=== PATIENT | female | born 2000 | race Caucasian/White ===

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

== ENCOUNTER 2018-10-24 12:55 | Emergency (ER) | payer SELFPAY ==
[2018-10-24 12:57] VITALS: BP 104/72; PULSE 111; RESP 16; TEMP 36.7; O2SAT 97; BMI 22.2
--- NOTE | 2018-10-24 13:12 | ED.DCSUM_ITS ---
- ER Visit Summary Date of Service: 10/24/18 Chief Complaint: Flank pain History of Present Illness: The patient is a 17 F presents to the emergency department flank pain. The patient states her symptoms began rather suddenly today. She describes a sharp, stabbing pain in her right flank. It does radiate to her abdomen. She states she is never really had pain like this before. She denies any fever or chills. She has had some increased urinary frequency. She denies any history of prior kidney stone. She is sexually active, but denies any vaginal bleeding or discharge. She did not take anything for her symptoms. Physical Examination: Vital signs reviewed General: Well-nourished, well-developed Head: Normocephalic, atraumatic Eyes: Pupils equal and reactive, extraocular muscles intact Neck, supple, no lymphadenopathy Heart: Regular rate and rhythm Respiratory: No distress, clear bilaterally Abdomen: Soft, nontender, nondistended, no peritoneal signs Back: Nontender Extremities: Nontender, no edema, no cords Skin: Normal color no rash Neuro: Alert and oriented, no focal or lateralizing deficits Test Results: [] Emergency Department Course and Treatment: IV was established. Patient was given fluids and anti-inflammatories. She did have improvement of her pain. Urine shows no evidence of blood. She is now . There is however infection. My suspicion is for mild pyelonephritis. Patient's pain is controlled. She is on no vomiting. She had no fever. I do feel that she is safe for outpatient therapy. She is comfortable this plan of care and will be discharged home. Treatment Plan: [] Disposition: [] Impression: Charge 1. Pyelonephritis This note was generated with [employer] dictation software. It may contain incorrect words, spelling, and punctuation that were not noted in review of the chart prior to signing ED Disposition - Plan for ED Patient: Instructions: ED Kidney Infec Female Prescriptions: Ondansetron [Zofran Odt] 4 mg PO Q8H PRN PRN #10 tab PRN Reason: Nausea Smz/Tmp Ds [Bactrim Ds] 1 tab PO BID #14 tab Referrals: Selvin Giraldo MD [Primary Care Provider] -
[2018-10-24 13:29] LABS: Bacteria 0 SEEN /hpf (None Seen); Mucous, Urine 0 SEEN /hpf (<or=2+); Red Blood Cells-Urine 0 SEEN /hpf (0-5)
[2018-10-24 13:32] LABS: Color, Urine Yellow (Yellow); Glucose, Dipstick Normal (Normal); Ketone-Dipstick Negative (Negative); Leukocyte Esterase-Dipstick 500 /ul (Negative); Nitrite-Dipstick Negative (Negative); Occult Blood-Urine 50 /ul (Negative); Protein-Dipstick 30 mg/dl (Negative); Specific Gravity, Urine 1.015 (1.002-1.030); Urine Bilirubin Dipstick Negative (Negative); Urine Clarity Cloudy (Clear); Urine Urobilinogen 4 mg/dl (Normal)
[2018-10-24] MEDS: 0.9% Normal Saline 1,000 ML 250 ML IV (13:37)
[2018-10-24] MEDS: Ketorolac 30 MG/ML Syringe IV (13:38)
[2018-10-24] MEDS: Ondansetron 4 MG/2 ML Vial IV (13:38)
[2018-10-24 13:39] LABS: Amorphous Sediment 2+; Squamous Epithelial Cells - UA 5-10 SEEN /hpf (5-10); White Blood Cells 25-50 SEEN /hpf (0-5)
[2018-10-24 13:40] LABS: Internal QC Validated? YES +Cl - CLEAR BKGD; Pregnancy, Urine Negative Negative
[2018-10-24] MEDS: Smz/Tmp Ds Tablet 1 TABLET PO (14:25)
--- NOTE | 2018-10-24 16:45 | ED.DEP ---
ED Disposition - Plan for ED Patient: Disposition: Home or Assisted Living Instructions: ED Kidney Infec Female Prescriptions: Ondansetron [Zofran Odt] 4 mg PO Q8H PRN PRN #10 tab PRN Reason: Nausea Smz/Tmp Ds [Bactrim Ds] 1 tab PO BID #14 tab Smz/Tmp Ds [Bactrim Ds] 1 tab PO BID #14 tab Referrals: Selvin Giraldo MD [Primary Care Provider] -
== END 2018-10-24 14:35 | disposition home or self-care (01) ==
PROVIDERS: Emergency Provider Emergency Medicine; Family Provider Pediatrics; PCP Pediatrics
DX: N12 Tubulo-interstitial nephritis, not specified as acute or chronic (principal)
CPT/HCPCS: 81001; 81025; 87077; 87086; 87088; 87186; 96361; 96374; 96375; 99284; J7030; J2405

== ENCOUNTER → 2020-07-01 14:21 | Outpatient (CLI) | payer BC, SELFPAY ==
[2020-07-01 13:58] VITALS: BMI 27.7
[2020-07-01 14:42] LABS: Absolute Lymphocyte Count 2.55 X10^3/uL (0.83-4.51); Absolute Neutrophil Count 5.4 X10^3/uL (2.0-7.7); Basophil# 0.03 X10^3/uL; Basophil% 0.4 % (0-1); Eosinophils% 1.2 % (0-5); Hematocrit 43.8 % (37-47); Lymphocyte # 2.55 X10^3/ul (4.0); Mean Corpuscular Hgb 28.9 pg (27.0-32.0); Mean Corpuscular Volume 90.5 fL (81-99); Mean Platelet Vol. 9.5 fl (6.2-12.0); Monocyte% 4.7 % (0-10); NRBC Flagged by Analyzer 0 % (0-5); Neutrophil % 63.5 % (47-70); Platelet Count 302 K/mm3 (150-450); RBC Distribution Width CV 11.8 % (11.6-14.6); RBC Distribution Width SD 39.1 fl (35.1-43.9); Red Blood Count 4.84 M/mm3 (4.2-5.4); White Blood Count 8.5 K/mm3 (4.4-11.0)
[2020-07-01 15:16] LABS: Thyroid Stim Hormone (TSH) 1.08 uIU/mL (0.358-3.74)
== END ==
PROVIDERS: PCP Pediatrics; Referring Provider Obstetrics & Gynecology; Visit Provider Obstetrics & Gynecology
DX: N92.0 Excessive and frequent menstruation with regular cycle (principal)
CPT/HCPCS: 36415; 84443; 85025

== ENCOUNTER → 2020-09-04 14:46 | Outpatient (CLI) | payer BC, SELFPAY ==
[2020-07-01 13:58] VITALS: BMI 27.7
[2020-09-04 16:02] LABS: hCG Titer Quant., Serum 358 mIU/mL (1-3)
== END ==
PROVIDERS: PCP Pediatrics; Referring Provider Obstetrics & Gynecology; Visit Provider Obstetrics & Gynecology
DX: N91.2 Amenorrhea, unspecified (principal)
CPT/HCPCS: 36415; 84702

== ENCOUNTER → 2020-09-06 12:24 | Outpatient (CLI) | payer BC, SELFPAY ==
[2020-07-01 13:58] VITALS: BMI 27.7
[2020-09-06 13:35] LABS: hCG Titer Quant., Serum 658 mIU/mL (1-3)
== END ==
LOC: LAB 12:26
PROVIDERS: PCP Pediatrics; Visit Provider Obstetrics & Gynecology
DX: N91.2 Amenorrhea, unspecified (principal)
CPT/HCPCS: 36415; 84702

== ENCOUNTER → 2020-09-11 12:26 | Outpatient (CLI) | payer SELFPAY ==
[2020-09-11 10:19] VITALS: BMI 27.4
== END ==
PROVIDERS: PCP Pediatrics; Referring Provider Obstetrics & Gynecology; Visit Provider Obstetrics & Gynecology
DX: R30.0 Dysuria (principal)

== ENCOUNTER → 2020-09-21 15:08 | Outpatient (CLI) | payer MEDICAID, SELFPAY ==
[2020-09-11 10:19] VITALS: BMI 27.4
--- NOTE | 2020-09-21 15:11 | US_ITS ---
STUDY: FIRST TRIMESTER OBSTETRICAL ULTRASOUND REASON FOR EXAM: Female, 19 years old well being LMP: 07/27/2020 TECHNIQUE: Transabdominal and Transvaginal TECHNICAL QUALITY: Adequate. PRIOR ULTRASOUND: None. FINDINGS: There is visualization of a single gestational sac in a normal intrauterine position. The mean sac diameter (MSD) measures 2 cm, indicating an estimated gestational age (EGA) of 6 weeks, 6 days. The gestational sac shape is within normal limits. There is a visualized yolk sac. The yolk sac measures 3.3 mm. The placenta is non-visualized. There is visualization of a live embryo. The crown-rump length (CRL) measures 5.4 mm, indicating an estimated gestational age (EGA) of 6 weeks, 3 days. There is demonstrated cardiac activity with a heart rate of 117 bpm. The estimated gestation age (EGA) by LMP is 8 weeks, 0 days. The estimated date of delivery (KVNG) by LMP is 05/03/2021. The estimated gestation age (EGA) by US is 6 weeks, 4 days. The estimated date of delivery (KVNG) by US is 05/13/2021. The uterus measures 7.8 x 5.8 x 4.1 cm. There is no demonstrated uterine fibroid. The cervix is closed. The right ovary measures 3.5 x 2.6 x 1.9 cm. There is no right ovarian cyst. There is no visualized right adnexal mass or complex lesion. The left ovary measures 2.8 x 2 x 3.2 cm. There is no left ovarian cyst. There is no visualized left adnexal mass or complex lesion. There is no fluid in the cul de sac. US/Init OB < 14Wks US IMPRESSION: Single live early intrauterine as above Electronically Signed: Moe Garcia DO at 0:33 EDT Tel , Service support ,
== END ==
PROVIDERS: PCP Pediatrics; Referring Provider Obstetrics & Gynecology; Visit Provider Obstetrics & Gynecology
DX: Z34.90 Encounter for supervision of normal pregnancy, unspecified, unspecified trimester (principal)
CPT/HCPCS: 76801

== ENCOUNTER → 2020-09-22 09:00 | Outpatient (CLI) | payer MEDICAID, SELFPAY ==
[2020-09-11 10:19] VITALS: BMI 27.4
== END ==
PROVIDERS: PCP Pediatrics; Referring Provider Nurse Practitioner Women's Health; Visit Provider Nurse Practitioner Women's Health
DX: N92.0 Excessive and frequent menstruation with regular cycle (principal)
CPT/HCPCS: 36415; 86850; 86900; 86901

== ENCOUNTER → 2020-10-05 16:45 | Outpatient (CLI) | payer MEDICAID, SELFPAY ==
[2020-10-05 14:30] VITALS: BMI 27.1
[2020-10-05 19:08] LABS: Amphetamine Urine VISTA NEGATIVE (<1000 ng/mL); Barbiturate Urine VISTA NEGATIVE (< 200 ng/mL); Benzodiazepine Urine VISTA NEGATIVE (< 200 ng/mL); Cocaine Urine VISTA NEGATIVE (< 300 ng/mL); Ecstacy Urine VISTA NEGATIVE (< 500 ng/mL); Methadone Urine VISTA NEGATIVE (< 300 ng/mL); PCP Urine VISTA NEGATIVE (< 25 ng/mL); THC Urine VISTA NEGATIVE (< 50 ng/mL); Vista UDS pH Range 6
[2020-10-08 03:07] LABS: Chlamydia By Nucleic Acid AMP Negative (Negative)
[2020-10-08 09:01] LABS: Gonococcus By Nucleic Acid AMP Negative (Negative)
[2020-10-08 18:45] LABS: HPV Reflexed? NOT INDICATED
== END ==
PROVIDERS: PCP Pediatrics; Visit Provider Obstetrics & Gynecology
DX: Z34.90 Encounter for supervision of normal pregnancy, unspecified, unspecified trimester (principal)
CPT/HCPCS: 80307; 87077; 87086; 87088; 87491; 87591; 88175; G0145

== ENCOUNTER → 2020-11-05 09:12 | Outpatient (CLI) | payer MEDICAID, SELFPAY ==
[2020-10-05 14:30] VITALS: BMI 27.1
[2020-11-05 09:41] LABS: Absolute Lymphocyte Count 2.11 X10^3/uL (0.83-4.51); Absolute Neutrophil Count 4.7 X10^3/uL (2.0-7.7); Basophil# 0.01 X10^3/uL; Basophil% 0.1 % (0-1); Eosinophil# 0.04 X10^3/uL; Eosinophils% 0.6 % (0-5); Hematocrit 39.5 % (37-47); Hemoglobin 12.8 g/dL (12.0-15.0); Lymphocyte # 2.11 X10^3/ul (0.83-4.51); Lymphocyte % 29.4 % (19-41); Mean Corp Hgb Conc 32.4 g/dL (32-36); Mean Corpuscular Hgb 29.2 pg (27.0-32.0); Mean Corpuscular Volume 90.2 fL (81-99); Mean Platelet Vol. 9.8 fl (6.2-12.0); Monocyte% 4.2 % (0-10); NRBC Flagged by Analyzer 0 % (0-5); Neutrophil % 65.4 % (47-70); Platelet Count 230 K/mm3 (150-450); RBC Distribution Width CV 12.2 % (11.6-14.6); RBC Distribution Width SD 40.3 fl (35.1-43.9); Red Blood Count 4.38 M/mm3 (4.2-5.4); White Blood Count 7.2 K/mm3 (4.4-11.0)
[2020-11-05 10:36] LABS: NATERA MAILED SPECIMEN
[2020-11-05 10:52] LABS: HIV - WCH Non-Reactive (Nonreactive); Hepatitis B Surface Antigen Non-Reactive (Nonreactive); Hepatitis C Antibody Non-Reactive (Nonreactive); Rubella IgG Reactive (Nonreactive)
== END ==
PROVIDERS: PCP Pediatrics; Referring Provider Obstetrics & Gynecology; Visit Provider Obstetrics & Gynecology
DX: O23.40 Unspecified infection of urinary tract in pregnancy, unspecified trimester (principal); Z3A.00 Weeks of gestation of pregnancy not specified
CPT/HCPCS: 36415; 85025; 86703; 86762; 86803; 86850; 86900; 86901; 87086; 87088; 87340

== ENCOUNTER → 2020-11-10 09:22 | Outpatient (CLI) | payer MEDICAID, SELFPAY ==
[2020-11-05 09:48] VITALS: BMI 27.1
--- NOTE | 2020-11-10 09:24 | US_ITS ---
STUDY: ABDOMINAL ULTRASOUND REASON FOR EXAM: Female, 20 years old. RUQ pain. TECHNIQUE: Transabdominal ultrasound was performed with real-time and static alexander scale imaging. TECHNICAL QUALITY: Adequate. COMPARISON: None. FINDINGS: Liver: The liver measures 13.6 cm. There is normal echogenicity of the liver. The bile ducts are within normal limits. There is hepatic color flow. The direction of portal flow is hepatopetal. There is no demonstrated mass lesion. Portal vein measurement: Gallbladder: Normal distended gallbladder. The gallbladder wall measures 2.2 mm. There is a negative sonographic Farr''s sign. There is no pericholecystic fluid. There are no gallstones. Common Bile Duct (C.B.D.): The common bile duct measures 2.5 mm. Pancreas: Normal size of the head, body and tail of the pancreas. There is normal echogenicity of the pancreas. There is no demonstrated pancreatic mass or cyst. Spleen: Normal size of the spleen. The spleen measures 9.5 cm x 3.5 cm x 4.6 cm. Right Kidney: Normal size of the right kidney. The right kidney measures 10.6 cm x 5.4 cm x 4.1 cm. Normal renal cortex. The right cortex measures 1.1 cm. There is no demonstrated renal mass or cyst. There is no right hydronephrosis. Left Kidney: Normal size of the left kidney. The left kidney measures 10.2 cm x 4.5 cm x 4.4 cm. Normal renal cortex. The left cortex measures 1.3 cm. There is no demonstrated renal mass or cyst. There is no left hydronephrosis. Aorta: Unremarkable I.V.C.: The IVC is patent. There is no ascites. US/Abdomen Complete IMPRESSION: Normal abdominal ultrasound examination. Electronically Signed: Aleksey Glover MD at 12:35 EDT , Service support ,
== END ==
PROVIDERS: PCP Pediatrics; Referring Provider Obstetrics & Gynecology; Visit Provider Obstetrics & Gynecology
DX: R10.11 Right upper quadrant pain (principal)
CPT/HCPCS: 76700

== ENCOUNTER → 2021-01-22 16:38 | Outpatient (CLI) | payer MEDICAID, SELFPAY ==
[2021-01-22 15:13] VITALS: BMI 27.1
== END ==
PROVIDERS: PCP Pediatrics; Visit Provider Obstetrics & Gynecology
DX: R10.2 Pelvic and perineal pain (principal)
CPT/HCPCS: 87086; 87088

== ENCOUNTER → 2021-01-25 16:38 | Outpatient (CLI) | payer MEDICAID, SELFPAY ==
[2021-01-25 15:05] VITALS: BMI 28.5
== END ==
PROVIDERS: PCP Pediatrics; Referring Provider Nurse Practitioner Women's Health; Visit Provider Nurse Practitioner Women's Health
DX: N76.0 Acute vaginitis (principal); R30.9 Painful micturition, unspecified
CPT/HCPCS: 87070; 87086; 87088; 87205

== ENCOUNTER 2021-01-28 09:15 | Outpatient (CLI) | payer MEDICAID, SELFPAY ==
[2021-01-25 15:05] VITALS: BMI 28.5
[2021-01-28 09:25] VITALS: BMI 28.4
[2021-01-28 09:39] VITALS: BP 124/76; PULSE 80
[2021-01-28 10:16] LABS: ROM Internal Control Test YES-OK TO RESULT pt. (Internal QC); ROM Patient Test Negative (Negative)
--- NOTE | 2021-01-29 10:56 | OB.TRI.PN ---
Progress Notes Date of Service: 01/28/21 Progress Note: Patient presents for triage evaluation secondary to leakage of fluid. ROM negative. FHT: Moderate variability reactive no decelerations category I tracing [place]: No Contractions Assessment and plan: Reactive NST, reassuring maternal and status patient discharged to home to follow-up at next scheduled visit. See problem list details for additional plan information. Laboratory Studies: Laboratory Tests 01/28/21 Range/Units 09:40 Vag Amniotic Fld Detect Negative (Negative) Charges/Coding Procedures Urinary/Genital 52xxx-59xxx: 86925-95 non-stress test Interp
== END 2021-01-28 10:52 | disposition home or self-care (01) ==
LOC: WPOUT 09:19 → WP 09:19
PROVIDERS: PCP Pediatrics; Referring Provider Obstetrics & Gynecology; Visit Provider Obstetrics & Gynecology
DX: O42.90 Premature rupture of membranes, unspecified as to length of time between rupture and onset of labor, unspecified weeks of gestation (principal); Z3A.00 Weeks of gestation of pregnancy not specified
CPT/HCPCS: 59025; 59050; 84112; 99218; G0378

== ENCOUNTER → 2021-02-16 08:33 | Outpatient (CLI) | payer MEDICAID, SELFPAY ==
[2021-01-28 09:25] VITALS: BMI 28.4
[2021-02-16 08:51] LABS: Absolute Lymphocyte Count 2.35 X10^3/uL (0.83-4.51); Absolute Neutrophil Count 7.7 X10^3/uL (2.0-7.7); Basophil# 0.04 X10^3/uL; Basophil% 0.4 % (0-1); Eosinophil# 0.11 X10^3/uL; Hematocrit 34.5 % (37-47); Hemoglobin 11.5 g/dL (12.0-15.0); Lymphocyte # 2.35 X10^3/ul (0.83-4.51); Lymphocyte % 21.7 % (19-41); Mean Corp Hgb Conc 33.3 g/dL (32-36); Mean Corpuscular Hgb 30.9 pg (27.0-32.0); Mean Corpuscular Volume 92.7 fL (81-99); Mean Platelet Vol. 9.8 fl (6.2-12.0); Monocyte# 0.53 X10^3/uL; Monocyte% 4.9 % (0-10); NRBC Flagged by Analyzer 0 % (0-5); Neutrophil # 7.71 X10^3/uL (2.7-7.7); Neutrophil % 71.4 % (47-70); Platelet Count 257 K/mm3 (150-450); RBC Distribution Width CV 12.9 % (11.6-14.6); RBC Distribution Width SD 43.6 fl (35.1-43.9); Red Blood Count 3.72 M/mm3 (4.2-5.4); White Blood Count 10.8 K/mm3 (4.4-11.0)
[2021-02-16 08:59] LABS: Glucose Challenge Gest 1H 50g 158 mg/dL (70-140)
== END ==
PROVIDERS: PCP Pediatrics; Referring Provider Nurse Practitioner Women's Health; Visit Provider Nurse Practitioner Women's Health
DX: Z13.1 Encounter for screening for diabetes mellitus (principal)
CPT/HCPCS: 36415; 82950; 85025

== ENCOUNTER → 2021-02-24 06:41 | Outpatient (CLI) | payer MEDICAID, SELFPAY ==
[2021-02-16 09:28] VITALS: BMI 28.4
[2021-02-24 08:25] LABS: Glucose GTT-Gestation. Fasting 80 mg/dL (<105)
[2021-02-24 08:43] LABS: Glucose GTT-Gestational 1 Hr 155 mg/dL (<190)
[2021-02-24 09:49] LABS: Glucose GTT-Gestational 2 Hr 131 mg/dL (<165)
[2021-02-24 11:08] LABS: Glucose GTT-Gestational 3 Hr 86 L (<145)
== END ==
PROVIDERS: PCP Pediatrics; Referring Provider Obstetrics & Gynecology; Visit Provider Obstetrics & Gynecology
DX: Z13.1 Encounter for screening for diabetes mellitus (principal)
CPT/HCPCS: 36415; 82951; 82952

== ENCOUNTER 2021-03-20 20:20 | Outpatient (CLI) | payer MEDICAID, SELFPAY ==
[2021-03-20 20:53] VITALS: PULSE 85; TEMP 36.6; O2SAT 98
[2021-03-20 20:54] VITALS: BP 122/60; PULSE 72
[2021-03-20 21:07] VITALS: BMI 28.9
[2021-03-20 21:24] VITALS: BP 123/68; PULSE 66
[2021-03-20] MEDS: Acetaminophen/Butalbital/Caffe 1 Tablet 2 TABLET PO (21:42)
[2021-03-20 21:49] LABS: Protein, Urine (Random) 15.6 mg/dL (<11.9); Protein:Creat Ratio 360 mg/g CRE (0-200)
[2021-03-20 21:53] VITALS: BP 113/75; PULSE 69
--- NOTE | 2021-03-21 06:50 | OB.TRI.PN ---
Progress Notes Date of Service: 03/20/21 Progress Note: Patient presents for triage evaluation secondary to headache and elevated bp FHT: 130 Moderate variability reactive no decelerations category I tracing [place]: irregular Contractions Assessment and plan: headache resolved, nl bps, elevated urine protein will get 24 hour urine Reactive NST, reassuring maternal and status patient discharged to home to follow-up this week in office. See problem list details for additional plan information. Laboratory Studies: Laboratory Tests 03/20/21 Range/Units 21:20 U Random Total Protein 15.6 H (<11.9) mg/dL Urine Creatinine 43.30 (NO RANGE EST.) mg/dL Protein/Creatinin Ratio 360 H (0-200) mg/g CRE Charges/Coding Procedures Urinary/Genital 52xxx-59xxx: 85389-56 non-stress test Interp Assessment & Plan (1) Proteinuria affecting : COMMENT: if 24 hour urine elvated- weekly nsts, get preeclampsia labs, growth us, home bp checks
[2021-03-21 23:19] LABS: 24 Hour Urine Protein 246.1 mg/24HR (<150 MG/24HR); 24HR. UA Prot. Total Volume 2300 mL; Urine Protein (24 Hour) 10.7 mg/dL (<11.9)
== END 2021-03-20 22:20 | disposition home or self-care (01) ==
LOC: WPOUT 20:36 → WP 20:42
PROVIDERS: PCP Pediatrics; Visit Provider Obstetrics & Gynecology
DX: O12.10 Gestational proteinuria, unspecified trimester (principal); Z3A.00 Weeks of gestation of pregnancy not specified; Z79.899 Other long term (current) drug therapy
CPT/HCPCS: 59025; 59050; 82570; 84156; 99218; G0378

== ENCOUNTER → 2021-04-02 18:25 | Outpatient (CLI) | payer MEDICAID, SELFPAY ==
--- NOTE | 2021-04-02 18:28 | US_ITS ---
STUDY: SECOND AND THIRD TRIMESTER OBSTETRICAL ULTRASOUND - LIMITED REASON FOR EXAM: Female, 20 years old routine survey LMP: 07/28/2020 PRIOR ULTRASOUND: 09/21/2020 TECHNIQUE: Transabdominal TECHNICAL QUALITY: Adequate. FINDINGS: There is a single intrauterine fetus. The fetus is in a cephalic presentation. There is demonstrated cardiac activity with a heart rate of 138 bpm. There is a normal amniotic fluid volume. The largest amniotic fluid pocket measures 3.3 cm. The amniotic fluid index (SY) is 16.27 cm. The placenta is anterior in location and is not low lying. There are Grade 2-3 placental changes. The cervix measures 3.1 cm cm in length. BIOMETRY: BPD: 8.36 cm: 33 weeks, 4 days HC: 31.43 cm: 35 weeks, 1 days AC: 30.29 cm: 34 weeks, 1 days FL: 6.58 cm: 33 weeks, 6 days Age by LMP: 34 weeks, 0 days. KVNG by LMP: 05/14/2021. age by prior US: 6 weeks, 4 days. KVNG by prior US: 05/13/2021. age by current US: 33 weeks, 6 days. KVNG by current US: 05/15/2021. Estimated weight: 2363 grams, +/- 354 grams, 48 percentile. US/OB Limited With Biometrics IMPRESSION: Single live intrauterine at 33 weeks, 6 days by current ultrasound with KVNG of 05/15/2021. Heart rate 138 bpm. No suspicious sonographic findings, normal growth noted since the previous study. Electronically Signed: Cabrera Kam MD at 9:58 EDT , Service support ,
== END ==
PROVIDERS: PCP Pediatrics; Visit Provider Obstetrics & Gynecology
DX: U07.1 COVID-19 (principal)
CPT/HCPCS: 76816

== ENCOUNTER 2021-04-15 09:41 | Outpatient (CLI) | payer MEDICAID, SELFPAY ==
[2021-04-15 09:51] VITALS: BMI 30.7
[2021-04-15 10:06] LABS: ROM Internal Control Test YES-OK TO RESULT pt. (Internal QC); ROM Patient Test Negative (Negative)
[2021-04-15 10:19] VITALS: BP 127/71; PULSE 70; TEMP 36.7
[2021-04-15 10:20] VITALS: PULSE 97; O2SAT 97
[2021-04-15 10:32] LABS: Hematocrit 30.6 % (37-47); Mean Corp Hgb Conc 32.7 g/dL (32-36); Mean Corpuscular Hgb 29.7 pg (27.0-32.0); Mean Corpuscular Volume 90.8 fL (81-99); Mean Platelet Vol. 10.8 fl (6.2-12.0); Platelet Count 240 K/mm3 (150-450); RBC Distribution Width CV 12.8 % (11.6-14.6); RBC Distribution Width SD 42.1 fl (35.1-43.9); Red Blood Count 3.37 M/mm3 (4.2-5.4); White Blood Count 8.2 K/mm3 (4.4-11.0)
[2021-04-15 10:34] VITALS: BP 128/74; PULSE 73
[2021-04-15 10:52] LABS: AST(SGOT) 21 U/L (15-37); Alanine Aminotransfer ALT/SGPT 14 U/L (13-56); Creatinine, Serum 0.47 mg/dL (0.55-1.02); EST Glomerular Filtration Rate 175 mL/min (>60); Est Glom Filt Rate - Afr Amer 211 mL/min (>60)
[2021-04-15 11:06] VITALS: BP 137/80; PULSE 76
[2021-04-15 11:12] LABS: Protein, Urine (Random) 9.9 mg/dL (<11.9); Protein:Creat Ratio 421 mg/g CRE (0-200)
[2021-04-15] MEDS: Metoclopramide 10 MG Tablet PO (12:03)
--- NOTE | 2021-04-21 08:08 | OB.TRI.PN ---
Progress Notes Date of Service: 04/15/21 Progress Note: Patient presents for triage evaluation secondary to elevated blood pressure. BPs mild range to normal. PreE labs normal. FHT: Moderate variability reactive no decelerations category I tracing [place]: No Contractions Assessment and plan: Reactive NST, reassuring maternal and status patient discharged to home to follow-up at next scheduled visit. See problem list details for additional plan information. Laboratory Studies: Laboratory Tests 04/15/21 04/15/21 04/15/21 Range/Units 11:00 10:15 10:15 WBC 8.2 (4.4-11.0) K/mm3 RBC 3.37 L (4.2-5.4) M/mm3 Hgb 10.0 L (12.0-15.0) g/dL Hct 30.6 L (37-47) % MCV 90.8 (81-99) fL MCH 29.7 (27.0-32.0) pg MCHC 32.7 (32-36) g/dL RDW Std Deviation 42.1 (35.1-43.9) fl RDW Coeff of Acrolyn 12.8 (11.6-14.6) % Plt Count 240 (150-450) K/mm3 MPV 10.8 (6.2-12.0) fl Creatinine 0.47 L (0.55-1.02) mg/dL Est GFR (MDRD) Af Amer 211 (>60) mL/min Est GFR (MDRD) Non-Af 175 (>60) mL/min Uric Acid 5.0 (2.6-6.0) mg/dL AST 21 (15-37) U/L ALT 14 (13-56) U/L U Random Total Protein 9.9 (<11.9) mg/dL Urine Creatinine 23.50 (NO RANGE EST.) mg/dL Protein/Creatinin Ratio 421 H (0-200) mg/g CRE Vag Amniotic Fld Detect (Negative) 04/15/21 Range/Units 09:42 WBC (4.4-11.0) K/mm3 RBC (4.2-5.4) M/mm3 Hgb (12.0-15.0) g/dL Hct (37-47) % MCV (81-99) fL MCH (27.0-32.0) pg MCHC (32-36) g/dL RDW Std Deviation (35.1-43.9) fl RDW Coeff of Carolyn (11.6-14.6) % Plt Count (150-450) K/mm3 MPV (6.2-12.0) fl Creatinine (0.55-1.02) mg/dL Est GFR (MDRD) Af Amer (>60) mL/min Est GFR (MDRD) Non-Af (>60) mL/min Uric Acid (2.6-6.0) mg/dL AST (15-37) U/L ALT (13-56) U/L U Random Total Protein (<11.9) mg/dL Urine Creatinine (NO RANGE EST.) mg/dL Protein/Creatinin Ratio (0-200) mg/g CRE Vag Amniotic Fld Detect Negative (Negative) Charges/Coding Procedures Urinary/Genital 52xxx-59xxx: 24956-88 non-stress test Interp
== END 2021-04-15 12:05 | disposition home or self-care (01) ==
LOC: LABSPEC 09:42 → WP 09:46
PROVIDERS: PCP Pediatrics; Visit Provider Obstetrics & Gynecology
DX: O26.899 Other specified pregnancy related conditions, unspecified trimester (principal); N89.8 Other specified noninflammatory disorders of vagina; Z3A.00 Weeks of gestation of pregnancy not specified
CPT/HCPCS: 36415; 59025; 59050; 82565; 82570; 84112; 84156; 84450; 84460; 84550; 85027; 99218; G0378

== ENCOUNTER 2021-04-22 01:35 | Inpatient (IN) | payer MEDICAID, SELFPAY ==
[2021-04-21 21:17] VITALS: BMI 32.3
[2021-04-21 21:29] VITALS: BP 143/68; PULSE 66; TEMP 36.7
[2021-04-21 21:43] VITALS: PULSE 58; O2SAT 98
[2021-04-21 22:14] LABS: ROM Internal Control Test YES-OK TO RESULT pt. (Internal QC); ROM Patient Test Negative (Negative)
[2021-04-21 23:29] VITALS: PULSE 49; O2SAT 99
[2021-04-21 23:52] VITALS: PULSE 53; O2SAT 100
[2021-04-21 23:54] VITALS: BP 129/59; PULSE 48
[2021-04-21 23:57] VITALS: PULSE 50; O2SAT 99
[2021-04-22] VITALS (60 sets, daily range): BP systolic 108–165; BP diastolic 52–93; PULSE 49–122; RESP 14–21; TEMP 35.9–37.1; O2SAT 80–100
[2021-04-22] MEDS: Betamethasone/Betamethasone 30 MG/5 ML Vial 12 MG IM (00:30)
[2021-04-22] MEDS: Lactated Ringers 500 ML 999 ML IV ×3 (00:42→13:55)
[2021-04-22 01:05] LABS: Absolute Neutrophil Count 6.5 X10^3/uL (2.0-7.7); Basophil# 0.03 X10^3/uL; Basophil% 0.3 % (0-1); Eosinophil# 0.03 X10^3/uL; Eosinophils% 0.3 % (0-5); Hematocrit 30.7 % (37-47); Hemoglobin 9.8 g/dL (12.0-15.0); Lymphocyte % 29.2 % (19-41); Mean Corp Hgb Conc 31.9 g/dL (32-36); Mean Corpuscular Hgb 29.2 pg (27.0-32.0); Mean Corpuscular Volume 91.4 fL (81-99); Mean Platelet Vol. 10.9 fl (6.2-12.0); Monocyte% 5.8 % (0-10); NRBC Flagged by Analyzer 0 % (0-5); Neutrophil # 6.51 X10^3/uL (2.7-7.7); Neutrophil % 63.4 % (47-70); Platelet Count 276 K/mm3 (150-450); RBC Distribution Width CV 12.5 % (11.6-14.6); RBC Distribution Width SD 41.1 fl (35.1-43.9); Red Blood Count 3.36 M/mm3 (4.2-5.4); White Blood Count 10.3 K/mm3 (4.4-11.0)
[2021-04-22] MEDS: Lactated Ringers 1,000 ML 100 ML IV ×2 (01:12→19:55)
[2021-04-22 01:25] LABS: ALB/GLOB Ratio 0.7 RATIO (0.9-2.4); AST(SGOT) 20 U/L (15-37); Alanine Aminotransfer ALT/SGPT 14 U/L (13-56); Albumin, Serum 2.3 g/dL (3.2-5.0); Alkaline Phosphatase 200 U/L (45-117); Anion Gap 6 (5-15); BUN 6 mg/dL (7-18); Calcium,Total 8.3 mg/dL (8.5-10.1); Chloride 110 mmol/L (98-107); Creatinine, Serum 0.46 mg/dL (0.55-1.02); EST Glomerular Filtration Rate 179 mL/min (>60); Est Glom Filt Rate - Afr Amer 216 mL/min (>60); Estimated Creatinine Clearance 137.79 ml/min; Globulin 3.5 g/dL (2.2-4.2); Glucose 80 mg/dL (74-106); Potassium 3.2 mmol/L (3.5-5.1); Protein, Total 5.8 g/dL (6.4-8.2); Sodium Level 140 mmol/L (136-145)
[2021-04-22 01:28] LABS: Protein, Urine (Random) 20.3 mg/dL (<11.9); Protein:Creat Ratio 582 mg/g CRE (0-200)
[2021-04-22 01:29] LABS: ROM Internal Control Test YES-OK TO RESULT pt. (Internal QC)
[2021-04-22 01:30] LABS: ROM Patient Test POSITIVE (Negative)
[2021-04-22] MEDS: Cefazolin 2 GM in 0.9% Normal Saline 100 ML IV ×2 (01:58→15:05)
[2021-04-22 02:20] LABS: Group B Strep DNA By PCR Negative (Negative); Internal Control PASS; Probe Check PASS; Specimen Processing Control PASS
[2021-04-22 03:04] LABS: Syphilis Antibodies Non-reactive
[2021-04-22] MEDS: Oxytocin 30 units/NS 500 ml 30 UNITS/500 ML IV.SOLN IV (03:34)
[2021-04-22] MEDS: Ondansetron 4 MG/2 ML Vial IV ×2 (05:46→14:33)
[2021-04-22] MEDS: Mag Hydrox/Al Hydrox/Simeth 30 ML UDC PO ×2 (07:44→11:42)
--- NOTE | 2021-04-22 08:45 | HP.PCM.OB_ITS ---
HPI - General General Date of Admission: 04/22/21 HPI Narrative YULY CARVER, is a 20 F G1P at 36/6 who presents for PPROM Maternal Data Information KVNG Calculator Estimated Delivery Date Method Current WG Current Estimate 05/14/21 Ultrasound #1 36w 6d Other Estimates 05/03/21 LMP (Certain) 38w 3d PFSH PFS Medical History (Updated 04/22/21 @ 08:[address] Anna Srinivasan MD) Headache Lab test positive for detection of COVID-19 virus Ovarian cyst Vitiligo Home Medications famotidine 20 mg tablet 20 mg PO BID #60 tab 01/22/21 [Rx Last Taken 04/21/21 16:30] blood pressure monitor #1 ea 04/15/21 [Rx Last Taken Unknown] [id number] [] 1 tab PO DAILY 04/21/21 [History Last Taken 04/20/21 22:00] Allergy/AdvReac Type Severity Reaction Status Date / Time Penicillins Allergy Hives Verified 04/21/21 21:17 Family History Grandfather CHF (congestive heart failure) Grandmother CHF (congestive heart failure) Aunt CHF (congestive heart failure) Surgical History History of surgery History of wisdom tooth extraction, class IV edentulism Social History household members: family housing: house current occupational status: employed 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- [employer] Smoking Status: Former smoker second hand exposure: Yes alcohol intake: never substance use type: does not use caffeine: Yes what type of physical activity do you participate in: none seatbelt use: always do you feel safe at home: Yes additional social history: Teresa Sal of [place] History 1 Elective abortions Hx Para 0 Spontaneous abortions Hx # Term Pregnancies Ectopic pregnancies Hx # Pregnancies Multiple births # of living children Visit Details Expected Delivery Route/Plan Labor Preferences- CB/BF classes: encouraged labor support person: kendall Hodgson labor intervention preferences: pain management options preferred: epidural cut cord/dad catch: no : yes PP control planned: nexplanon discussed possible routes of delivery and associated risks: [] special requests: [] Plans covid status: in positive, counseled regarding risk of covid in vs vaccination and given vaccination flu vaccine: given tdap vaccine: given rhogam: na LARC form signed: yes movement and labor precautions reviewed. Problem list reviewed and updated with the most current plan of care details and appropriate orders placed. Relevant counseling for the gestational age provided. Continue routine care and follow up unless otherwise noted in visit notes/problem list details OB Flowsheet Initial Weight: Not Recorded Date -?-?-?-?-?-?-?-?-?-?-?-?- EGA Weight BP Urine Prot -?-?-?-?-?-?-?-?-?-?-?-?- Glucose FHR FuHt Pres Dilation -?-?-?-?-?-?-?-?-?-?-?-?- Effaced St Visit Note 10/05/20 -?-?-?-?-?-?-?-?-?-?-?-?- 8w 3d 139 lb 4 oz 134/72 -?-?-?-?-?-?-?-?-?-?-?-?- 160 -?-?-?-?-?-?-?-?-?-?-?-?- GP - CRL 22mm co nsistent with LMP and prior US. 11/05/20 -?-?-?-?-?-?-?-?-?-?-?-?- 12w 6d 134 lb 4 oz 130/68 Nega tive -?-?-?-?-?-?-?-?-?-?-?-?- Negative 155 -?-?-?-?-?-?-?-?-?-?-?-?- GP - no cramping or bleeding. Having RUQ pain almost every night - RUQ ultrasound ordered. 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 12/02/20 -?-?-?-?-?-?-?-?-?-?-?-?- 16w 5d 137 lb 6 oz 120/88 Nega tive -?-?-?-?-?-?-?-?-?-?-?-?- Negative 145 -?-?-?-?-?-?-?-?-?-?-?-?- GP - RUQ US norm al but still having upper abdominal pain. Pepcid prescribed. No pelvic cramping or bleeding. 01/22/21 -?-?-?-?-?-?-?-?-?-?-?-?- 24w 0d 145 lb 120/82 Negative -?-?-?-?-?-?-?-?-?-?-?-?- Negative 145 -?-?-?-?-?--?-?-?-?-?-?-?- GP - work-in for cramping. Pain consistent with round ligament pain. UA done. Given pepcid for heartburn 01/25/21 -?-?-?-?-?-?-?-?-?-?-?-?- 24w 3d 146 lb 8 oz 104/70 104/70 Negative -?-?-?-?-?-?-?-?-?-?-?-?- Negative 148 -?-?-?-?-?-?-?-?-?-?-?-?- -work in for d ysuria, pelvic pressure. UA with small leuks only. Vaginal exam negative. No VB. COLLINS BV and comp culture pending-call positive only. Good FM 02/16/21 -?-?-?-?-?-?-?-?-?-?-?-?- 27w 4d 149 lb 6 oz 132/70 Nega tive -?-?-?-?-?-?-?-?-?-?-?-?- Negative 138 28 -?-?-?-?-?-?-?-?-?-?-?-?- -No VB, LOF. G ood FM. 28 wk labs-needs 3hr GTT. Tdapnext visit 03/11/21 -?-?-?-?-?-?-?-?-?-?-?-?- 30w 6d 153 lb 138/88 Negative -?-?-?-?-?-?-?-?-?-?-?-?- Negative 150 30 -?-?-?-?-?-?-?-?-?-?-?-?- GP - no LOF, VB, DFM, ctx. Passed 3h GCT. 04/08/21 -?-?-?-?-?-?-?-?-?-?-?-?- 34w 6d 160 lb 6 oz 130/80 Nega tive -?-?-?-?-?-?-?-?-?-?-?-?- Negative 140 -?-?-?-?-?-?-?-?-?-?-?-?- Sm- no vb Sm- no vb lof good fm no reu lar ctx 24 urine protein nl and bps WNL. nst today but doesn't need any further unless symptoms change. 04/14/21 -?-?-?-?-?-?-?-?-?-?-?-?- 35w 5d 162 lb 6 oz 116/88 Nega tive -?-?-?-?-?-?-?-?-?-?-?-?- Negative 148 36 -?-?-?-?-?-?-?-?-?-?-?-?- MH: no VB, LOF. Good FM. Irreg CTX. Growth US scheduled. 04/15/21 -?-?-?-?-?-?-?-?-?-?-?-?- 35w 6d 162 lb 8 oz 158/100 Nega tive -?-?-?-?-?-?-?-?-?-?-?-?- Negative 140 -?-?-?-?-?-?-?-?-?-?-?-?- GP - work in for possible LOF. BP elevated and patient has had persistent GONZALES for last 24 hours. Sent to triage for eval. 04/22/21 -?-?-?-?-?-?-?-?-?-?-?-?- 36w 6d 165 lb 12.8 oz 143/6 8 129/59 141/93 136/72 108/56 117/57 126/60 133/72 -?-?-?-?-?-?-?-?-?-?-?-?- -?-?-?-?-?-?-?-?-?-?-?-?- NST FHR Rate Baby A Baseline: 120 Variability:: Moderate Accelerations:: 15 x 15 Decelerations:: Variable (rare) FHR Category:: Category II Uterine Activity:: q2-3 min ROS Eyes Eyes: Reports systems reviewed and no addt'l complaints, except as documented ENT HEENT: Reports systems reviewed and no addt'l complaints, except as documented Cardiovascular Cardiovascular: Reports systems reviewed and no addt'l complaints, except as documented Respiratory/Chest Respiratory/Chest: Reports systems reviewed and no addt'l complaints, except as documented Gastrointestinal Gastrointestinal: Reports systems reviewed and no addt'l complaints, except as documented Genitourinary Genitourinary: Reports systems reviewed and no addt'l complaints, except as documented Musculoskeletal Musculoskeletal: Reports systems reviewed and no addt'l complaints, except as documented Integumentary Integumentary: Reports systems reviewed and no addt'l complaints, except as documented Neurologic Neurologic: Reports systems reviewed and no addt'l complaints, except as documented Psychiatric Psychiatric: Reports systems reviewed and no addt'l complaints, except as documented Endocrine Endocrinology: Reports systems reviewed and no addt'l complaints, except as documented Hematologic/Lymphatic Hematologic/Lymphatic: Reports systems reviewed and no addt'l complaints, except as documented Allergic/Immunologic Allergic/Immunologic: Reports systems reviewed and no addt'l complaints, except as documented Vital Signs Vital Signs Vital Signs: 04/21/21 21:29 04/21/21 21:43 04/21/21 23:29 Temperature 98.0 F Temperature Source Temporal Pulse Rate 66 58 L 49 L Blood Pressure 143/68 H BP Systolic 143 BP Diastolic 68 Pulse Ox 98 99 04/21/21 23:52 04/21/21 23:54 04/21/21 23:57 Temperature Temperature Source Pulse Rate 53 L 48 L 50 L Blood Pressure 129/59 H BP Systolic 129 BP Diastolic 59 Pulse Ox 100 99 04/22/21 00:02 04/22/21 00:07 04/22/21 00:13 Temperature Temperature Source Pulse Rate 50 L 50 L 51 L Blood Pressure BP Systolic BP Diastolic Pulse Ox 98 98 98 04/22/21 00:15 04/22/21 00:18 04/22/21 00:23 Temperature Temperature Source Pulse Rate 104 H 58 L 56 L Blood Pressure BP Systolic BP Diastolic Pulse Ox 80 98 98 04/22/21 02:14 04/22/21 02:15 04/22/21 03:17 Temperature 98.7 F Temperature Source Temporal Pulse Rate 50 L 50 L Blood Pressure 141/93 H 136/72 H BP Systolic 141 136 BP Diastolic 93 72 Pulse Ox 99 98 04/22/21 03:18 04/22/21 04:33 04/22/21 05:41 Temperature 98.0 F 98.0 F 98.1 F Temperature Source Temporal Temporal Temporal Pulse Rate 55 L Blood Pressure 108/56 L BP Systolic 108 BP Diastolic 56 Pulse Ox 98 98 04/22/21 05:42 04/22/21 06:37 04/22/21 06:38 Temperature 98.8 F Temperature Source Temporal Pulse Rate 52 L 53 L Blood Pressure 117/57 L 126/60 H BP Systolic 117 126 BP Diastolic 57 60 Pulse Ox 98 04/22/21 07:26 04/22/21 07:27 Temperature 98.6 F Temperature Source Temporal Pulse Rate 55 L 55 L Blood Pressure 133/72 H BP Systolic 133 BP Diastolic 72 Pulse Ox 98 Weight Weight: 165 lb 12.8 oz Body Mass Index (BMI) 32.3 Physical Exam Const alert, oriented x3, no apparent distress, average body habitus, healthy appearing and well nourished HEENT normocephalic and moist oral mucous membranes Head and Scalp: atraumatic Eyes PERRL and EOMs intact bilaterally Neck full ROM Resp normal respiratory effort, no retractions and no use of accessory muscles Cardio regular rate and regular rhythm GI soft to palpation, non-tender and non-distended Extremity normal to inspection and full ROM Skin no rashes or lesions noted Neuro no focal motor deficits and no sensory deficits noted Psych mental status grossly normal, affect normal, speech normal and activity/motor behavior normal Labs Labs Labs: Blood Type O POSITIVE Antibody Screen NEGATIVE Hct 30.7 % (37-47) L Hgb 9.8 g/dL (12.0-15.0) L Obstetrics US Syphilis Total Ab Non-reactive Rubella IgG Antibody Reactive (Nonreactive) Hep Bs Antigen Non-Reactive (Nonreactive) Neisseria gonorrhoeae DNA (STEVE) Negative (Negative) HIV 1&2 Antibody Non-Reactive (Nonreactive) Glucose 1 Hr 50 gm 158 mg/dL (70-140) H Group B Strep DNA Negative (Negative) Assessment & Plan (1) : QUALIFIERS: Weeks of gestation: 35 weeks Qualified Code(s): Z3A.35 - 35 weeks gestation of COMMENT: NIPT- low risk male and carrier neg. . NEEDS SYPHILIS, anatomy nl, cx nl (2) Supervision of normal : QUALIFIERS: Normal : normal first Trimester: first trimester Qualified Code(s): Z34.01 - Encounter for supervision of normal first , first trimester COMMENT: PRR needs syphilis KVNG:05/14/21 BF: Gokul (has custody of her 11 yr old cousin Desi) (3) Urinary tract infection affecting : COMMENT: rpt culture neg (4) Abnormal glucose tolerance in : COMMENT: Normal 3hr GTT (5) Proteinuria affecting : COMMENT: weekly NSts/ Home BP (6) Transient hypertension of : COMMENT: BP 158/100 with GONZALES. Sent to triage for labs and monitoring. PLAN: Intermittently mild range PreE labs negative P:C elevated (7) Lab test positive for detection of COVID-19 virus: COMMENT: asa 81mg, growth US nl (8) premature rupture of membranes (PPROM) with unknown onset of labor: PLAN: Patient presents with PPROM, plan expectant management for , pitocin/jordan bulb. Pain management: plans epidural. GBS unknown and - ancef ordered. Management of any complications: none I have reviewed the [facility] and made any clinically relevant updates.
[2021-04-22] MEDS: 0.9% Normal Saline Single 100 ML IV.SOLN. INTRA-UTER (08:55)
[2021-04-22] MEDS: Cefazolin 1 GM/50 ML BAG IV (10:31)
[2021-04-22] MEDS: Lactated Ringers 1,000 ML 50 ML IV (10:32)
[2021-04-22] MEDS: fentaNYL-bupivacaine (epidural) 100 ML BAG EPIDURAL (13:08)
[2021-04-22] MEDS: Terbutaline 1 MG/ML Vial 0.25 MG SC (14:03)
[2021-04-22] MEDS: Oxytocin 30 units/NS 500 ml 30 UNITS/500 ML IV.SOLN 167 UNITS IV ×2 (16:10→17:13)
--- NOTE | 2021-04-22 16:49 | OP.PCM_ITS ---
Assessment & Plan (1) delivery delivered: COMMENT: GP PPROM PCD Cat II Micaela (2) premature rupture of membranes (PPROM) with unknown onset of labor: (3) : QUALIFIERS: Weeks of gestation: 35 weeks Qualified Code(s): Z3A.35 - 35 weeks gestation of COMMENT: NIPT- low risk male and carrier neg. . NEEDS SYPHILIS, anatomy nl, cx nl (4) Supervision of normal : QUALIFIERS: Normal : normal first Trimester: first trimester Qualified Code(s): Z34.01 - Encounter for supervision of normal first , first trimester COMMENT: PRR needs syphilis KVNG:05/14/21 BF: Gokul (has custody of her 11 yr old cousin Desi) (5) Urinary tract infection affecting : COMMENT: rpt culture neg (6) Abnormal glucose tolerance in : COMMENT: Normal 3hr GTT (7) Proteinuria affecting : COMMENT: weekly NSts/ Home BP (8) Transient hypertension of : COMMENT: BP 158/100 with GONZALES. Sent to triage for labs and monitoring. (9) Lab test positive for detection of COVID-19 virus: COMMENT: asa 81mg, growth US nl Maternal Data Information KVNG Calculator Estimated Delivery Date Method Current WG Current Estimate 05/14/21 Ultrasound #1 36w 6d Other Estimates 05/03/21 LMP (Certain) 38w 3d Details Operative Information Date of Procedure: 04/22/21 Pre-Operative Diagnosis: IUP at 36w, PPROM, Category II FHT Post-Operative Diagnosis: Same Indications for : Nonreassuring Status Indications Narrative: 20yo at 36/6 admitted for PPROM. Patient was augmented with pitocin. Patient had a 9 minute deceleration into the 60s. Heart rate recovered, but patient continued to have deep variable decelerations without augmentation. Then had additional 2 minute decel into the 60s. Decision made to proceed with a primary . The risks, benefits, indications, and alternatives to the procedure were discussed with the patient including bleeding, infection, and visceral or vascular injury. She voiced understanding and agreed to proceed. Classification: SHONA Procedure Type: low transverse personnel recruiter #1: Jean Addison Type of Anesthesia: Epidural Converted to Spinal Antibiotic Given: Ancef 2 grams IV x1 and Zithromax 500 mg/5 mL X1 Drain: Akhtar to straight drain Estimated Blood Loss: 500 Fluids Replaced: 1500 Findings Description of Procedure: The patient is a at 36/6 who presented for primary . Spinal anesthesia was placed without difficulty. Akhtar catheter was placed. The patient was placed in the dorsal supine position with leftward tilt. Patient was prepped and draped in the normal sterile fashion. Pfannenstiel skin incision was made with the scalpel and carried through to the underlying layer of fascia with the scalpel. Fascia was nicked in the midline and the incision extended laterally. The rectus bellies were dissected off superiorly and inferiorly with out complication both sharply and bluntly. The peritoneum was entered digitally. The incision was stretched and a low transverse uterine incision was made with the scalpel. The 's head was delivered atraumatically followed by the anterior and posterior shoulders without complication the rest of the delivered. The cord was clamped and cut and the infant was handed off to awaiting nurse. The placenta was delivered spontaneously immediately following and was noted to be intact and have a three- vessel cord. The uterus was exteriorized cleared of all clots and debris, and the incision was closed in a double layer closure using #1 Monocryl. The ovaries and fallopian tubes were noted to be within normal limits. The uterus was returned to the maternal abdomen and gutters were cleared of all clots and debris. On inspection, a ~4 cm superficial laceration was noted in the bladder serosa. This was oversewn with 3-0 vicryl in a running fashion. The bladder was backfilled with methylene blue and noted to be water-tight. The muscle was closed with 3-0 Monocryl in a running fashion. Gloves were changed prior to fascial closure. Fascia was closed with 0 PDS in a running fashion. Subcutaneous tissue was copiously irrigated and the skin was closed with 3-0 Monocryl in a subcuticular fashion. Mepilex dressing was applied without complication. Patient was taken to recovery in stable condition. It was discussed with the patient that based on the clinical information obtained during this encounter, combined with her history, at this time I feel that she would be a candidate for vaginal deliveries if further pregnancies are desired. Presentation: Positive for Vertex Amniotic Membrane Rupture Type: Spontaneous Amniotic Fluid Description: Clear Placental Delivery Description: Spontaneous Placenta Disposition: [facility] Cord Vessel Description: 3 Vessels Cord Entanglement: None A Gender: Male Delayed Cord Clamping: Yes Complications Risks of Surgery Discussed w/Patient: Bleeding, Anesthesia Risks, Infection and Injury to surrounding structure(s) including bowel and bladder Complications: None Procedures Urinary/Genital [id number]: [id number] delivery+ Care([facility])
[2021-04-22] MEDS: Ketorolac 30 MG/ML Syringe IV ×2 (17:12→23:22)
--- NOTE | 2021-04-22 17:51 | NURSING ---
epidural catheter removed, blue tip intact. pt tolerated well.
[2021-04-22] MEDS: Acetaminophen 500 MG Tablet 1000 MG PO (18:56)
[2021-04-22] MEDS: Famotidine 20 MG Tablet PO (23:22)
[2021-04-23] VITALS (9 sets, daily range): BP systolic 130–139; BP diastolic 67–83; PULSE 53–102; RESP 14–18; TEMP 36.3–36.8; O2SAT 96–99
[2021-04-23] MEDS: Acetaminophen 500 MG Tablet 1000 MG PO ×4 (00:35→19:02)
--- NOTE | 2021-04-23 02:40 | PCM.DC ---
Discharge Instructions Diet Discharge Diet: No restrictions Activity May resume sexual activity in: 4-6 weeks Lifting Restrictions: 20 lbs Additional Activity Instructions:: Nothing in the vagina for 4-6 weeks. You may return to work/school in 6 weeks. Dressing / Incision Call your doctor if your incision/area has: Continuous Slow Oozing, Sudden Increased Bleeding, Increased Pain/ Swelling, Increased Redness and Foul Smelling Discharge Call your doctor if you observe: Fever of 101 or Higher Suture Line Care: Avoid Pulling/Pushing and Avoid Pinching/Bending Follow Up Care When: Call to make an appointment with your doctor for an incision check in 1-2 weeks. You will also need a 6 week post- follow up appointment. Test Results: Test results from this visit will be discussed in further detail at your follow-up appointment, if applicable. Discharge Plan Admission Admit Date/Time: 04/22/21 01:35 Attending Provider: Anna Srinivasan Primary Care Provider: Selvin Giraldo Instructions Patient Instructions: After a Discharge Orders/Prescriptions Prescriptions: New ibuprofen 800 mg tablet 800 mg PO Q8H PRN (Reason: pain) Qty: 60 RF: 1 oxycodone 5 mg capsule 5 mg PO Q6H PRN (Reason: pain) 7 Days Qty: 15 RF: 0 Continued famotidine [Pepcid] 20 mg tablet 20 mg PO BID Qty: 60 RF: 3 [id number] 1 mg Tablet 1 tab PO DAILY RF: 0 (DME) blood pressure monitor Kit See Rx Instructions .ROUTE .MEDSUPPLY Qty: 1 RF: 0 Referrals / Follow Up: Selvin Giraldo MD [Primary Care Provider] -
[2021-04-23] MEDS: Ketorolac 30 MG/ML Syringe IV ×2 (05:46→11:41)
[2021-04-23 06:45] LABS: Hematocrit 26.6 % (37-47); Hemoglobin 8.4 g/dL (12.0-15.0); Mean Corp Hgb Conc 31.6 g/dL (32-36); Platelet Count 241 K/mm3 (150-450); RBC Distribution Width CV 12.6 % (11.6-14.6); RBC Distribution Width SD 43.6 fl (35.1-43.9); White Blood Count 14.6 K/mm3 (4.4-11.0)
--- NOTE | 2021-04-23 08:33 | PCM.PN.OB ---
Subjective Subjective Patient doing well without complaints. Tolerating PO. Ambulating and voiding without difficulty. Breast feeding well. Denies chest pain, shortness of breath, calf pain/swelling, fevers, chills, lightheadedness. Objective Data Objective Data Vital Signs: Vital Signs Temp Pulse Resp BP Pulse Ox 97.4 F L 55 L 18 139/69 H 98 04/23/21 04:00 04/23/21 06:22 04/23/21 06:22 04/23/21 04:00 04/23/21 06:22 Oxygen Delivery Method Room Air Weight: 165 lb 12.8 oz Body Mass Index (BMI) 32.3 Intake & Output: Intake and Output for Last 24 Hours 04/21/21 04/22/21 04/23/21 23:59 23:59 23:59 Intake Total 3826.36 / 3826.36 808.33 / 808.33 Output Total 3450 / 3450 Balance 376.36 / 376.36 808.33 / 808.33 Lab / Micro Data Result Diagrams: 04/23/21 06:30 04/22/21 00:40 Labs: Laboratory Results - last 24 hr 04/23/21 06:30: WBC 14.6 H, RBC 2.80 L, Hgb 8.4 L, Hct 26.6 L, MCV 95.0, MCH 30.0, MCHC 31.6 L, RDW Std Deviation 43.6, RDW Coeff of Carolyn 12.6, Plt Count 241, MPV 11.0 Micro: Microbiology 04/22/21 01:10 Nasal Secretion SARS-CoV-2 Antigen (Rapid) - Final ROS Constitutional Constitutional: Denies fever(s) Cardiovascular Cardiovascular: Denies chest pain, dyspnea or lightheadedness Gastrointestinal Gastrointestinal: Reports abdominal pain; Denies constipation or diarrhea Neurologic Neurologic: Denies dizziness or headache(s) Physical Exam Const alert, oriented x3, no apparent distress, average body habitus, healthy appearing and well nourished HEENT normocephalic Head and Scalp: atraumatic Eyes PERRL and EOMs intact bilaterally Neck full ROM Lymph Lymphatic: no lymphadenopathy noted Resp normal respiratory effort, no retractions and no use of accessory muscles Cardio regular rate GI soft to palpation, non-tender and non-distended Inspection: incision intact and other (dressing in place) Palpation: other Other Details: fundus firm Extremity normal to inspection and no clubbing, cyanosis or edema Skin no rashes or lesions noted Neuro no focal motor deficits and no sensory deficits noted Psych mental status grossly normal, affect normal and speech normal Assessment & Plan (1) delivery delivered: COMMENT: GP PPROM PCD Cat II Boy-Florian PLAN: s/p LTCS PPD # 1 1. routine post care 2. breast feeding- support given 3. rh positive 4. rubella immune
[2021-04-23] MEDS: Famotidine 20 MG Tablet PO (10:20)
[2021-04-23] MEDS: Senna/Docusate Sodium 1 Tablet PO (10:20)
[2021-04-23] MEDS: Ibuprofen 600 MG Tablet PO ×2 (17:22→22:52)
[2021-04-23] MEDS: oxyCODONE 5 MG Tablet PO (22:52)
[2021-04-24] MEDS: Acetaminophen 500 MG Tablet 1000 MG PO ×2 (01:54→06:30)
[2021-04-24 01:56] VITALS: BP 117/57; PULSE 64; RESP 14; TEMP 37.1; O2SAT 96
[2021-04-24] MEDS: Ibuprofen 600 MG Tablet PO (04:30)
--- NOTE | 2021-04-24 07:12 | PCM.PN.OB ---
Subjective Subjective Patient doing well without complaints. Tolerating PO. Ambulating and voiding without difficulty. feeding well. Denies chest pain, shortness of breath, calf pain/swelling, fevers, chills, lightheadedness. Objective Data Objective Data Vital Signs: Vital Signs Temp Pulse Resp BP Pulse Ox 98.7 F 64 14 117/57 L 96 04/24/21 01:56 04/24/21 01:56 04/24/21 01:56 04/24/21 01:56 04/24/21 01:56 Oxygen Delivery Method Room Air Weight: 165 lb 12.8 oz Body Mass Index (BMI) 32.3 Intake & Output: Intake and Output for Last 24 Hours 04/22/21 04/23/21 04/24/21 23:59 23:59 23:59 Intake Total 3826.36 / 3826.36 808.33 / 808.33 Output Total 3450 / 3450 500 / 500 Balance 376.36 / 376.36 308.33 / 308.33 Lab / Micro Data Result Diagrams: 04/23/21 06:30 04/22/21 00:40 Micro: Microbiology 04/22/21 01:10 Nasal Secretion SARS-CoV-2 Antigen (Rapid) - Final ROS Constitutional Constitutional: Reports systems reviewed and no addt'l complaints, except as documented Cardiovascular Cardiovascular: Reports systems reviewed and no addt'l complaints, except as documented Respiratory/Chest Respiratory/Chest: Reports systems reviewed and no addt'l complaints, except as documented Gastrointestinal Gastrointestinal: Reports systems reviewed and no addt'l complaints, except as documented Physical Exam Const alert, oriented x3 and no apparent distress HEENT Head and Scalp: atraumatic Resp normal respiratory effort GI soft to palpation and non-tender Bimanual Exam - Vag & Uterus: uterus non-tender Uterus Palpation: uterus fundus firm (below Umbilicus) Assessment & Plan (1) delivery delivered: COMMENT: GP PPROM PCD Cat II Boy-Du
[2021-04-24 08:15] VITALS: BP 134/64; PULSE 55; RESP 15; TEMP 36.6; O2SAT 98
--- NOTE | 2021-04-24 09:00 | NURSING ---
dr ordonez notified of maternal pulse 50-55; pt not symptomatic
[2021-04-24] MEDS: Senna/Docusate Sodium 1 Tablet PO (09:28)
[2021-04-24] MEDS: Famotidine 20 MG Tablet PO (09:28)
== END 2021-04-24 11:13 | disposition home or self-care (01) | DRG 540 ==
LOC: WPOUT 01:50 → WP 01:50
PROVIDERS: Admitting Provider Obstetrics & Gynecology; PCP Pediatrics; Referring Provider Obstetrics & Gynecology; Visit Provider Obstetrics & Gynecology
DX: O76 Abnormality in fetal heart rate and rhythm complicating labor and delivery (principal); O42.913 Preterm premature rupture of membranes, unspecified as to length of time between rupture and onset of labor, third trimester; Z37.0 Single live birth; Z87.891 Personal history of nicotine dependence; O16.4 Unspecified maternal hypertension, complicating childbirth; Z86.16 Personal history of COVID-19; Z3A.36 36 weeks gestation of pregnancy
CPT/HCPCS: 36415; 59025; 59050; 80053; 82570; 84112; 84156; 85025; 85027; 86780; 86850; 86900; 86901; 87081; 87426; 87653; 96372; 99218; 99251; J7120; G0378; G0463; J0702; J2405; Q9968

== ENCOUNTER → 2021-06-02 11:34 | Outpatient (CLI) | payer MEDICAID, SELFPAY ==
[2021-06-02 11:54] LABS: Absolute Lymphocyte Count 2.89 X10^3/uL (0.83-4.51); Absolute Neutrophil Count 3.8 X10^3/uL (2.0-7.7); Basophil# 0.03 X10^3/uL; Basophil% 0.4 % (0-1); Eosinophil# 0.09 X10^3/uL; Eosinophils% 1.3 % (0-5); Hematocrit 38.2 % (37-47); Lymphocyte # 2.89 X10^3/ul (0.83-4.51); Lymphocyte % 40.5 % (19-41); Mean Corp Hgb Conc 31.4 g/dL (32-36); Mean Corpuscular Hgb 28.4 pg (27.0-32.0); Mean Corpuscular Volume 90.3 fL (81-99); Mean Platelet Vol. 9.7 fl (6.2-12.0); Monocyte# 0.31 X10^3/uL; Monocyte% 4.3 % (0-10); NRBC Flagged by Analyzer 0 % (0-5); Neutrophil # 3.79 X10^3/uL (2.7-7.7); Neutrophil % 53.2 % (47-70); Platelet Count 318 K/mm3 (150-450); RBC Distribution Width CV 11.9 % (11.6-14.6); RBC Distribution Width SD 38.9 fl (35.1-43.9); Red Blood Count 4.23 M/mm3 (4.2-5.4); White Blood Count 7.1 K/mm3 (4.4-11.0)
== END ==
PROVIDERS: PCP Pediatrics; Referring Provider Nurse Practitioner Women's Health; Visit Provider Nurse Practitioner Women's Health
DX: O82 Encounter for cesarean delivery without indication (principal); Z3A.00 Weeks of gestation of pregnancy not specified
CPT/HCPCS: 36415; 85025

== ENCOUNTER 2021-10-20 09:05 | Emergency (ER) | payer MEDICAID, SELFPAY ==
[2021-10-20 09:46] VITALS: BP 130/99; PULSE 75; RESP 14; TEMP 36.3; O2SAT 96; BMI 29.9
--- NOTE | 2021-10-20 09:55 | US_ITS ---
EXAM: US ABDOMEN LIMITED, RIGHT UPPER QUADRANT : 2000 CLINICAL INDICATION: PAIN TECHNIQUE: Real-time ultrasound of the right upper quadrant with image documentation. This report was created using [employer] report generation technology. COMPARISON: None. FINDINGS: LIVER: Unremarkable. There is normal echotexture. No focal hepatic lesion. No intrahepatic biliary ductal dilation. GALLBLADDER: Several small stones are present within the gallbladder. No gallbladder wall thickening is demonstrated. No pericholecystic fluid. Negative sonographic Farr's sign. COMMON BILE DUCT: Unremarkable as visualized. The proximal common bile duct is within normal limits for the patient's age. PANCREAS: Unremarkable as visualized. No focal abnormality is demonstrated in the pancreas. No pancreatic ductal dilatation. RIGHT KIDNEY: Unremarkable. There is no hydronephrosis. No shadowing calculus. No focal lesion or perinephric collection is demonstrated. US/Gallbladder IMPRESSION: Cholelithiasis. at 1132 Reported and signed by: Maverick Samaniego MD Electronically Signed: Maverick Samaniego MD at 11:31 EDT ,
--- NOTE | 2021-10-20 09:58 | EDS_ITS ---
HPI HPI - GI History of Present Illness Chief Complaint: Abd Pain Narrative Narrative: Patient who denies significant past medical history presents with 6 months of epigastric to right upper quadrant abdominal pain that has been intermittent, worsening over the last 4 days. She states that ever since that she had her son and was , she is experienced nausea and right upper quadrant pain. She went to an outside facility on Monday, 3 days ago, where she states she had a CT performed and was told that she might have gallstones. She has been taking omeprazole and nausea medications which make it worse. She denies any exacerbating or alleviating factors. She changed her diet, to fruits and vegetables without fatty foods, and states that made it worse. She last vomited 2 days ago without any blood in her emesis but experiences pain and nausea. She presents for evaluation again. She denies any dysuria or hematuria. No other symptoms. [facility] Medical History Contraceptive management Headache Ovarian cyst premature rupture of membranes (PPROM) with unknown onset of labor Vitiligo Home Medications [id number] 1 tab PO DAILY 04/21/21 [History Last Taken 04/20/21 22:00] famotidine 20 mg tablet 20 mg PO BID 30 Days #60 tab 06/16/21 [Rx Last Taken Unknown] promethazine 25 mg PO Q6H PRN #20 tab 10/20/21 [Rx Last Taken Unknown] Allergy/AdvReac Type Severity Reaction Status Date / Time Penicillins Allergy Hives Verified 10/20/21 10:04 Family History Grandfather CHF (congestive heart failure) Grandmother CHF (congestive heart failure) Aunt CHF (congestive heart failure) Surgical History delivery delivered History of surgery History of wisdom tooth extraction, class IV edentulism Social History household members: family housing: house current occupational status: employed current occupation: [employer] Smoking Status: Former smoker second hand exposure: Yes alcohol intake: never substance use type: does not use caffeine: Yes what type of physical activity do you participate in: none seatbelt use: always do you feel safe at home: Yes additional social history: Gokul- [facility] ED ROS Narrative Constitutional: No fever, no chills. HEENT: No sore throat. No neck pain. No loss of vision. No rhinorrhea. Cardiovascular: No chest pain. No palpitations. No pedal edema. Respiratory: No cough, no shortness of breath. Abdominal: Epigastric to right upper quadrant abdominal pain. Positive nausea. No vomiting currently, last 2 days ago. Genitourinary: No dysuria. No hematuria. Musculoskeletal: No myalgias. No arthralgias. Neurologic: No headaches. No dizziness. No lightheadedness. Skin: No rash. No change in color. Psychiatric: No depression. No anxiety. EXAM Physical Exam Narrative Exam Narrative: Afebrile. Vital signs noted. HEENT: Normocephalic. Atraumatic. PERRL, EOMI. Neck soft and supple. No point tenderness or step off. Cardiovascular: Regular rate and rhythm. No murmurs, rubs, or gallops appreciated. Respiratory: No tachypnea. Lungs clear to auscultation bilaterally. Gastrointestinal: Abdomen soft, with tenderness to palpation in the epigastrium to right upper quadrant, with normoactive bowel sounds. No rebound or guarding. Questionable Farr sign. Neurological: Awake. Alert. Nonfocal, nonlateralizing. Skin: No rash. Normal color. No pallor. Musculoskeletal: No pedal edema. Full range of motion extremities. Const Vital Signs: 10/20/21 09:46 Temperature 97.3 F L Temperature Source Temporal Pulse Rate 75 Respiratory Rate 14 Blood Pressure 130/99 H Blood Pressure Mean 109 Pulse Ox 96 Oxygen Delivery Method Room Air MDM MDM MDM Narrative Medical decision making narrative: Ultrasound will be obtained along with CBC, CMP, and lipase. She was administered IV fluids and ondansetron for her nausea that was caused by palpation. Patient has a low white count of 3.7, normal hemoglobin of 12.3, hematocrit normal at 37.1. Normal platelets of 293. While her electrolytes are grossly unremarkable except for elevated chloride of 109, she has transaminase in with an AST of 693 and an ALT of 935, alk phos elevated at 156 with a total bilirubin of 1.8. Her urinalysis shows no evidence of infection. Ultrasound shows cholelithiasis but no evidence of choledocholithiasis or cholecystitis, common bile duct appears normal. I discussed patient with Dr. Regalado with surgery. He has seen and evaluated the patient in the emergency department. Given her tenderness, he does feel that she can be discharged home to follow-up with him tomorrow, and plan for surgery the following day. I do feel this is acceptable. Her abdomen remains soft. She was written a prescription for Phenergan for her nausea. Return instructions to the emergency department were reviewed. Disposition is discharged home in stable condition. Lab Data Attestation: I reviewed the patient's lab results. Labs: Laboratory Results - last 24 hr 10/20/21 10/20/21 10/20/21 09:20 10:20 10:20 WBC 3.7 L RBC 4.45 Hgb 12.3 Hct 37.1 MCV 83.4 MCH 27.6 MCHC 33.2 RDW Std Deviation 39.2 RDW Coeff of Carolyn 13.0 Plt Count 293 MPV 10.0 Immature Gran % (Auto) 0.300 Neut % (Auto) 58.2 Lymph % (Auto) 33.4 [place] % (Auto) 6.8 Eos % (Auto) 0.8 Baso % (Auto) 0.5 Absolute Neuts (auto) 2.1 Absolute Lymphs (auto) 1.22 Nucleated RBC % 0 Sodium 140 Potassium 3.8 Chloride 109 H Carbon Dioxide 26.0 Anion Gap 5 BUN 11 Creatinine 0.88 Estim Creat Clear Calc 72.03 Est GFR (MDRD) Af Amer 102 Est GFR (MDRD) Non-Af 85 BUN/Creatinine Ratio 12.5 Glucose 111 H Calcium 8.7 Total Bilirubin 1.80 H AST 693 H ALT 935 H Alkaline Phosphatase 156 H Total Protein 6.7 Albumin 3.9 Globulin 2.8 Albumin/Globulin Ratio 1.4 Lipase 69 L Urine Color Yellow Urine Clarity Sl. Cloudy Urine pH 7.0 Ur Specific [place] 1.010 Urine Protein Negative Urine Glucose (UA) Normal Urine Ketones Negative Urine Occult Blood 25 H Urine Nitrite Negative Urine Bilirubin 1 H Urine Urobilinogen 4 H Ur Leukocyte Esterase 500 H Urine RBC 0 SEEN Urine WBC 0-5 SEEN Ur Squamous Epith Cells 0-5 SEEN Urine Bacteria 0 SEEN Urine Mucus 0 SEEN Radiography Diagnostic Testing: Clinical Impression(s) from Imaging Studies Gallbladder Ultrasound 10/20/21 09:55 IMPRESSION: Cholelithiasis. at 1132 Reported and signed by: Maverick Samaniego MD Electronically Signed: Maverick Samaniego MD at 11:31 EDT , ADDENDUM: 10/20/21 1237 IMPRESSION: Multiple small gallstones. Mildly dilated common bile duct. Small amount of free fluid anterior to the pancreas. Minimal fullness of the superior pole calyces of the right kidney. Electronically Signed: Aleksey Glover MD at 12:30 EDT , Discharge Plan Triage Chief Complaint: Abd Pain ED Provider: Blayne Nelson Dx/Rx/DC Orders Clinical Impression: Abdominal pain, RUQ, Nausea, Cholelithiasis, Elevated liver enzymes Instructions: Nausea Vomit Control, ED Gallstones with Biliary Colic Prescriptions: New promethazine 25 mg tablet 25 mg PO Q6H PRN (Reason: nausea and vomiting) Qty: 20 RF: 0 No Action chtqtehm-alp-Nb-FA 1 mg Tablet 1 tab PO DAILY RF: 0 famotidine [Pepcid] 20 mg tablet 20 mg PO BID 30 Days Qty: 60 RF: 6 Primary Care Provider: Selvin Giraldo Referrals: Niall Regalado MD [STAFF PHYSICIAN] - 1 Day Selvin Giraldo MD [Primary Care Provider] - Disposition Disposition: Home, Self Care
[2021-10-20 10:21] LABS: Bacteria 0 SEEN /hpf (None Seen); Mucous, Urine 0 SEEN /hpf (<or=2+); Red Blood Cells-Urine 0 SEEN /hpf (0-5)
[2021-10-20 10:23] LABS: Color, Urine Yellow (Yellow); Glucose, Dipstick Normal (Normal); Ketone-Dipstick Negative (Negative); Leukocyte Esterase-Dipstick 500 /ul (Negative); Nitrite-Dipstick Negative (Negative); Occult Blood-Urine 25 /ul (Negative); Protein-Dipstick Negative (Negative); Urine Clarity Sl. Cloudy (Clear); Urine Urobilinogen 4 mg/dl (Normal)
[2021-10-20] MEDS: Ondansetron 4 MG/2 ML Vial IV (10:25)
[2021-10-20] MEDS: 0.9% Normal Saline 1,000 ML 1000 ML IV (10:25)
[2021-10-20 10:32] LABS: Urine Bilirubin Dipstick 1 mg/dL (Negative)
[2021-10-20 10:42] LABS: Squamous Epithelial Cells - UA 0-5 SEEN /hpf (5-10); White Blood Cells 0-5 SEEN /hpf (0-5)
[2021-10-20 10:48] LABS: Absolute Lymphocyte Count 1.22 X10^3/uL (0.83-4.51); Absolute Neutrophil Count 2.1 X10^3/uL (2.0-7.7); Basophil# 0.02 X10^3/uL; Basophil% 0.5 % (0-1); Eosinophil# 0.03 X10^3/uL; Eosinophils% 0.8 % (0-5); Hematocrit 37.1 % (37-47); Hemoglobin 12.3 g/dL (12.0-15.0); Lymphocyte # 1.22 X10^3/ul (0.83-4.51); Lymphocyte % 33.4 % (19-41); Mean Corp Hgb Conc 33.2 g/dL (32-36); Mean Corpuscular Hgb 27.6 pg (27.0-32.0); Mean Corpuscular Volume 83.4 fL (81-99); Monocyte# 0.25 X10^3/uL; Monocyte% 6.8 % (0-10); NRBC Flagged by Analyzer 0 % (0-5); Neutrophil # 2.12 X10^3/uL (2.7-7.7); Neutrophil % 58.2 % (47-70); Platelet Count 293 K/mm3 (150-450); RBC Distribution Width SD 39.2 fl (35.1-43.9); Red Blood Count 4.45 M/mm3 (4.2-5.4); White Blood Count 3.7 K/mm3 (4.4-11.0)
[2021-10-20 11:04] LABS: ALB/GLOB Ratio 1.4 RATIO (0.9-2.4); AST(SGOT) 693 U/L (15-37); Alanine Aminotransfer ALT/SGPT 935 U/L (13-56); Albumin, Serum 3.9 g/dL (3.2-5.0); Alkaline Phosphatase 156 U/L (45-117); Anion Gap 5 (5-15); BUN 11 mg/dL (7-18); BUN/Creat Ratio 12.5 RATIO (10-20); Calcium,Total 8.7 mg/dL (8.5-10.1); Chloride 109 mmol/L (98-107); Creatinine, Serum 0.88 mg/dL (0.55-1.02); EST Glomerular Filtration Rate 85 mL/min (>60); Est Glom Filt Rate - Afr Amer 102 mL/min (>60); Estimated Creatinine Clearance 72.03 ml/min; Globulin 2.8 g/dL (2.2-4.2); Glucose 111 mg/dL (74-106); Lipase 69 U/L (73-393); Potassium 3.8 mmol/L (3.5-5.1); Protein, Total 6.7 g/dL (6.4-8.2); Sodium Level 140 mmol/L (136-145)
--- NOTE | 2021-10-20 12:45 | PCM.HP.STD ---
HPI - General HPI Narrative YULY CARVER, is a 20 F who presents to [facility] with complaints of right upper quadrant pain and associated nausea that became unremitting 2-1/2 days ago. She states that she is experienced right upper quadrant pain that radiates up into her chest for approximately the last 6 months. She delivered her son 6 months ago and has experienced this pain ever since. Patient was initially prescribed omeprazole for suspected reflux disease and she states this initially seemed to bring about some relief, but 2 and half days ago she started with pain early in the morning and it failed to remit as it normally does. She states she had some [place] chicken which was mildly spicy prior to the pain's onset. ER work-up is notable for CBC without leukocytosis or left shift. However, CMP shows transaminitis and hyperbilirubinemia. Follow-up right upper quadrant ultrasound identified gallstones, but gallbladder wall thickness was within normal limits, there was no noted pericholecystic fluid, and there is no dilation of the common bile duct. Patient's only prior abdominal surgery was a 6 months ago. Her mother accompanies her in the room and states that both she and her other daughter required cholecystectomy. [facility] Medical History Contraceptive management Headache Ovarian cyst premature rupture of membranes (PPROM) with unknown onset of labor Vitiligo Home Medications oetdfqkr-yjg-Tv-FA 1 tab PO DAILY 04/21/21 [History Last Taken 04/20/21 22:00] famotidine 20 mg tablet 20 mg PO BID 30 Days #60 tab 06/16/21 [Rx Last Taken Unknown] promethazine 25 mg PO Q6H PRN #20 tab 10/20/21 [Rx Last Taken Unknown] Allergy/AdvReac Type Severity Reaction Status Date / Time Penicillins Allergy Hives Verified 10/20/21 10:04 Family History Grandfather CHF (congestive heart failure) Grandmother CHF (congestive heart failure) Aunt CHF (congestive heart failure) Surgical History delivery delivered History of surgery History of wisdom tooth extraction, class IV edentulism Social History household members: family housing: house current occupational status: employed current occupation: [employer] Smoking Status: Former smoker second hand exposure: Yes alcohol intake: never substance use type: does not use caffeine: Yes what type of physical activity do you participate in: none seatbelt use: always do you feel safe at home: Yes additional social history: Gokul- [facility] Vital Signs Vital Signs Vital Signs: 10/20/21 09:46 Temperature 97.3 F L Temperature Source Temporal Pulse Rate 75 Respiratory Rate 14 Blood Pressure 130/99 H Blood Pressure Mean 109 Pulse Ox 96 Oxygen Delivery Method Room Air Weight Weight: 153 lb 10.595 oz Body Mass Index (BMI) 29.9 Physical Exam Const alert, oriented x3, no apparent distress and well nourished General Appearance: cooperative and well developed Resp normal respiratory effort GI GI Narrative: Obese, numerous abdominal striae, nondistended. Soft, tender to palpation in epigastrium and right upper quadrant. Positive Farr sign. Results Lab / Micro Data Result Diagrams: 10/20/21 10:20 10/20/21 10:20 Labs: Laboratory Results - last 24 hr 10/20/21 09:20: Urine Color Yellow, Urine Clarity Sl. Cloudy, Urine pH 7.0, Ur Specific [place] 1.010, Urine Protein Negative, Urine Glucose (UA) Normal, Urine Ketones Negative, Urine Occult Blood 25 H, Urine Nitrite Negative, Urine Bilirubin 1 H, Urine Urobilinogen 4 H, Ur Leukocyte Esterase 500 H, Urine RBC 0 SEEN, Urine WBC 0-5 SEEN, Ur Squamous Epith Cells 0-5 SEEN, Urine Bacteria 0 SEEN, Urine Mucus 0 SEEN 10/20/21 10:20: WBC 3.7 L, RBC 4.45, Hgb 12.3, Hct 37.1, MCV 83.4, MCH 27.6, MCHC 33.2, RDW Std Deviation 39.2, RDW Coeff of Carolyn 13.0, Plt Count 293, MPV 10.0, Immature Gran % (Auto) 0.300, Neut % (Auto) 58.2, Lymph % (Auto) 33.4, [place] % (Auto) 6.8, Eos % (Auto) 0.8, Baso % (Auto) 0.5, Absolute Neuts (auto) 2.1, Absolute Lymphs (auto) 1.22, Nucleated RBC % 0 10/20/21 10:20: Sodium 140, Potassium 3.8, Chloride 109 H, Carbon Dioxide 26.0, Anion Gap 5, BUN 11, Creatinine 0.88, Estim Creat Clear Calc 72.03, Est GFR (MDRD) Af Amer 102, Est GFR (MDRD) Non-Af 85, BUN/Creatinine Ratio 12.5, Glucose 111 H, Calcium 8.7, Total Bilirubin 1.80 H, AST 693 H, ALT 935 H, Alkaline Phosphatase 156 H, Total Protein 6.7, Albumin 3.9, Globulin 2.8, Albumin/Globulin Ratio 1.4, Lipase 69 L Radiology Impression Gallbladder Ultrasound 10/20/21 09:55 IMPRESSION: Cholelithiasis. at 1132 Reported and signed by: Maverick Samaniego MD Electronically Signed: Maverick Samaniego MD at 11:31 EDT , ADDENDUM: 10/20/21 1237 IMPRESSION: Multiple small gallstones. Mildly dilated common bile duct. Small amount of free fluid anterior to the pancreas. Minimal fullness of the superior pole calyces of the right kidney. Electronically Signed: Aleksey Glover MD at 12:30 EDT , Assessment & Plan Assessment/Plan (1) Abdominal pain, RUQ: (2) Cholelithiasis: PLAN: Patient with symptomatic cholelithiasis and biochemical evidence of gallstone transit through the biliary system. Given patient's persistent tenderness, recommend rather urgent address of her symptoms. We will plan to follow-up tomorrow in my clinic to discuss operative plans for 10/22/2021. I have recommended laparoscopic cholecystectomy with intraoperative cholangiogram?with the latter as a means of trying to assure the patient has no retained stones near the ampulla. Patient expresses agreement with this recommendation and wishes to proceed as described. I also recommended a diet to hopefully minimize stimulation/contractions of the gallbladder. Lastly, I have asked patient to begin MiraLAX daily to address her developing constipation and had a surgery. My clinic will reach out to patient regarding her appointment noted above. (3) Elevated liver enzymes:
[2021-10-20 12:51] VITALS: PULSE 75; RESP 16; O2SAT 98
== END 2021-10-20 12:52 | disposition home or self-care (01) ==
PROVIDERS: Emergency Provider Emergency Medicine; PCP Pediatrics; Visit Provider Emergency Medicine
DX: R10.11 Right upper quadrant pain (principal); R11.0 Nausea; K80.20 Calculus of gallbladder without cholecystitis without obstruction; R74.8 Abnormal levels of other serum enzymes; Z87.891 Personal history of nicotine dependence
CPT/HCPCS: 76705; 80053; 81001; 83690; 85025; 96361; 96374; 99282; J7030; A4216; J2405

== ENCOUNTER 2021-10-22 10:02 | Observation (INO) | payer MEDICAID, SELFPAY ==
[2021-10-22] VITALS (17 sets, daily range): BP systolic 113–131; BP diastolic 63–86; PULSE 49–72; RESP 14–18; TEMP 36.4–37.2; O2SAT 97–100; BMI 29.5
--- NOTE | 2021-10-22 06:45 | EKG12_ITS ---
Test Reason : PREOP Blood Pressure : / mmHG Vent. Rate : 086 BPM Atrial Rate : 086 BPM P-R Int : 134 ms QRS Dur : 084 ms QT Int : 356 ms P-R-T Axes : 061 055 053 degrees QTc Int : 426 ms Normal sinus rhythm Normal ECG Confirmed by ELIZABETH MONROE, TIFFANY ([id number]), web content editor ALDAIR MILLER ([id number]) on 10/26/2021 8:50:59 AM Referred By: SERG Confirmed By:TIFFANY JOHNSON MD
[2021-10-22 07:14] LABS: Internal QC Validated? YES +Cl - CLEAR BKGD; Pregnancy, Urine Negative Negative
[2021-10-22] MEDS: Lactated Ringers 1,000 ML 30 ML IV ×2 (07:29→09:30)
--- NOTE | 2021-10-22 07:39 | HP.PCM_ITS ---
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 Is patient in pain?: No Allergies Penicillins Allergy (Verified 10/21/21 12:19) Hives, swelling Medications promethazine 25 mg PO Q6H PRN #20 tab 10/20/21 [Rx Confirmed 10/21/21] omeprazole 40 mg capsule,delayed release 40 mg PO DAILY 10/21/21 [History Confirmed 10/21/21] PFSH Medical History Back pain Contraceptive management Easy bruising Headache Heartburn Ovarian cyst premature rupture of membranes (PPROM) with unknown onset of labor Vaping nicotine dependence, tobacco product Vitiligo Surgical History delivery delivered History of surgery Family History (Updated 10/21/21 @ 12:17 by Christi Monday) Grandfather CHF (congestive heart failure) Grandmother CHF (congestive heart failure) Aunt CHF (congestive heart failure) Sister Asthma Father Arthritis Diabetes Hypertension Mother Thyroid disorder Social History household members: family housing: house current occupational status: employed current occupation: [employer] Smoking Status: Current every day smoker tobacco type: e-cigarettes second hand exposure: Yes alcohol intake: never substance use type: does not use caffeine: Yes what type of physical activity do you participate in: none seatbelt use: always do you feel safe at home: Yes additional social history: Teresa Guerrero [facility] HPI HPI: YULY CARVER, is a 20 F who presents to the office today for who presents with right upper quadrant pain and associated nausea associated with sonographic finding of gallstones. They are referred for surgical consultation from Dr. Nelson of Emergency medicine. Pain is described as constant with radiation to the back. additional symptoms include: Associated nausea. Symptoms have been present for 6 months on and off, but rather constant for the last 4 days. I have met Mrs. Carver yesterday during an ER visit and concerned that her symptoms will prevent her from waiting longer, asked her to follow-up in my clinic today so that we could plan for surgery tomorrow. Symptoms are associated with eating. Associated food triggers include spicy and greasy foods. Patient states that she has been diligent about refraining from these foods with her diet and her pain is consequently been improved. She also reports that her nausea has been better after taking prescribed Phenergan from the ER. Symptoms tend to occur in the early mornings Previous work-up has included: CMP 10/20/2021 that showed transaminitis and ultrasound that showed cholelithiasis but no evidence of cholecystitis. Patient's only prior surgical history is section April 2021 From yesterday, patient states that her constipation is somewhat better after beginning MiraLAX yesterday. She was able to achieve a small bowel movement and states that she will take more this afternoon. ROS General General: No weight change, appetite, fatigue, colon cancer, breast cancer or weakness HEENT HEENT: No difficulty swallowing, eye injury, eye surgery, swollen glands or hoarseness Endo Endocrine: No thyroid disease, diabetes mellitus, thyroid cancer, Hair loss, heat intolerance or cold intolerance Skin Skin: No rash or changing moles Musc Musculoskeletal: Yes back problems; No arthritis, rheumatoid arthritis, gout or joint pain Cardio Cardiovascular: No murmur, pacemaker, heart disease, atrial fibrillation, high blood pressure, heart attack, heart stent, palpitations, shortness of breat with exertion or chest pain Psych Psychiatric: No depression, anxiety or hearing voices Resp Respiratory: No shortness of breath, No sleep apnea, No cough, No COPD, No asthma, No emphysema and No wheezing Gastro Gastrointestinal: Yes abdominal pain, Yes nausea or vomiting, No diarrhea, Yes constipation, No blood in stool, No acid reflux, No hemorrhoids, No ulcers, Yes gallbladder problem and No black,tarry stools Eddie Hematologic: No blood thinners, No blood disorders, No bleeding, No anemia and No blood clots Neuro Neurologic: No system reviewed and no additional complaints, except as documented, No as per HPI, No abnormal gait, No abnormal hearing, No abnormal movements, No abnormal speech, No behavioral changes, No burning sensations, No confusion, No convulsions, No disequilibrium, No dizziness, No localized weakness, No frequent falls, No headache(s), No lack of coordination, No loss of vision, No memory loss, No numbness, No other visual disturbances, No radicular pain, No restless legs, No sensory deficit, No syncope, No tingling, No tremor(s), No weakness and No other Exam Const General: cooperative, healthy appearing and no acute distress Orientation: alert, awake and oriented x3 Resp Effort & Inspection: normal respiratory effort GI Inspection: obesity Palpation: soft, no hernias and tender in the RUQ Assessment and Plan Assessment and Plan (1) Abdominal pain, RUQ: Status: Acute Comment: Found in association with right upper quadrant ultrasound showing cholelithiasis without other evidence of cholecystitis sonographically and CMP demonstrating transaminitis. Plan - Dr. Niall Regalado MD: Suspect symptomatic cholelithiasis or early acute cholecystitis with possible recent passage of gallstone. Planning for laparoscopic cholecystectomy with intraoperative cholangiogram tomorrow to better evaluate biliary drainage. Patient informed that she will be n.p.o. after midnight. We will plan for an outpatient procedure, but patient has been warned that overnight observation may be indicated depending on the findings of her cholangiogram and need for potential post procedure ERCP. All other questions were answered for the patient and she wishes to proceed as originally described. (2) Cholelithiasis: Status: Acute Comment: As above, found in association with abnormal CMP and symptoms of right upper quadrant pain and nausea. Have recommended short follow-up and rather urgent outpatient laparoscopic cholecystectomy with intraoperative cholangiogram. Plan - Dr. Niall Regalado MD: Laparoscopic cholecystectomy with intraoperative cholangiogram scheduled for 10/22/2021. I have re-examined the patient. There are no clinical changes since date of exam. Plan to proceed to the OR for laparoscopic cholecystectomy with intraoperative cholangiogram.
[2021-10-22 07:41] LABS: International Normalized Ratio 1.1; Prothrombin Time (Protime)PT. 14.2 SECONDS (11.7-14.9)
[2021-10-22 07:42] LABS: Partial Thromboplast Time 34.5 Seconds (24.1-36.2)
[2021-10-22] MEDS: Clindamycin 900 MG/50 ML BAG 75 MG IV (08:00)
--- NOTE | 2021-10-22 08:00 | GALL_PTH ---
PATIENT: YULY CARVER LOC: [facility]3 U#:[id number] AGE/SX: 20/ ROOM: NM306 RE10/22/[address]: Dr. Niall Regalado MD : 2000 BED: 1 DIS: 10/23/2021 SPEC #: [id number] RECD: 10/22/21 10:22 STATUS: IVÁN RELinda #: [id number] GINETTE: 10/22/21 08:[address]: Niall Regalado DEPT: SURGICAL PATHOLOGY RECD BY: Cici Crisostomo ENTERED: 10/22/21 10:35 SP TYPE: SANIYA BRIONES DR: DO Kaylyn Chen, ANABEL-Sanjay Tissues: Gallbladder, NOS Procedures: Surgery Specimen Level III HEADER OPERATION: Laparoscopic cholecystectomy with IOC PRE-OP DIAGNOSIS: Abdominal pain, cholelithiasis TISSUE SUBMITTED: Gallbladder MICROSCOPIC DIAGNOSIS Gallbladder, cholecystectomy: Chronic cholecystitis and cholelithiasis. SJ:paulette 10/25/2021 MICROSCOPIC DESCRIPTION Slides are reviewed. GROSS DESCRIPTION Received is one container labeled with the patient's name and designated gallbladder. The specimen consists of a gallbladder measuring 8 cm in length and up to 4.5 cm in diameter. The external surface is pink-lyle, smooth and glistening for the most part. Focally it is granular, hemorrhagic and contains cautery artifact. The gallbladder contains yellowish mucoid bile and multiple yellowish-green mulberry stones measuring in aggregate 1 x 1 x 0.5 cm and 0.3 to 0.5 cm in greatest dimension. The mucosa is bile-stained and without any mass lesions. The gallbladder wall measures up to 0.3 cm in thickness. Math Teacher sections from the gallbladder and the cystic duct are submitted in one cassette. / HEATHER:paulette 10/22/2021 TC:3 CPT: 87776
--- NOTE | 2021-10-22 08:25 | RAD_ITS ---
STUDY: INTRAOPERATIVE GLANDULAR FOLLOWING INJECTION OF GLUCAGON. REASON FOR EXAM: Female, 20 years old. S/P GLUCAGON ADMINISTRATION FLUOROSCOPY TIME (if supplied): ( 33 seconds ) minutes/seconds. The Cine loop of 158 images was submitted. TECHNIQUE: A repeat Intraop Cholangiogram was performed with injection of GLUCAGON. COMPARISON: Comparison is made with prior examination done earlier today. FINDINGS: Persistent dilatation of the common bile duct. There is some contrast entering the duodenum. Persistent filling defect in the distal portion of the common bile duct. RAD/Cholangiogram O.R./Subsequent IMPRESSION: Persistent filling defect in the distal portion of the common bile duct in keeping with a distal common bile duct calculus. Electronically Signed: Aleksey Glover MD at 12:18 EDT ,
--- NOTE | 2021-10-22 08:25 | RAD_ITS ---
STUDY: INTRAOPERATIVE CHOLANGIOGRAM. REASON FOR EXAM: Female, 20 years old. Laparoscopic cholecystectomy. FLUOROSCOPY TIME (if supplied): ( 53.1 seconds ) minutes/seconds. The cine loop of 84 images was submitted. TECHNIQUE: An intraoperative cholangiogram was performed by the surgeon. Imaging was submitted. COMPARISON: None. FINDINGS: The intrahepatic biliary ducts are unremarkable. Mildly dilated. Limited flow into the duodenum. I suspect a small calculus in the distal portion of the common bile duct. RAD/Cholangiogram/ O R,Initial IMPRESSION: Findings suggestive of a small calculus in the distal portion of the common bile duct. Electronically Signed: Aleksey Glover MD at 12:16 EDT ,
[2021-10-22] MEDS: Bupivacaine 0.5% PF 10 ML VIAL (09:30)
--- NOTE | 2021-10-22 09:58 | OP.PCM_ITS ---
Report of Operation Date of Procedure: 10/22/21 Pre-Operative Diagnosis: 1. Symptomatic cholelithiasis 2. Recent transaminitis Post-Operative Diagnosis: 1. Acute cholecystitis 2. Choledocholithiasis Surgery/Procedure Performed:: Laparoscopic cholecystectomy with intraoperative cholangiogram Description of Surgical Findings:: ?Distended gallbladder with inflammation near the gallbladder infundibulum and adherence to the second portion of the duodenum ?Normal gallbladder anatomy with single cystic duct and cystic artery ?Cholangiogram showing filling defect distally near the ampulla despite administration of glucagon Surgeon: Niall Regalado salvage winder: Niecy Phelps Type of Anesthesia: General/Supplemental Anesthesiologist: Ananda Menjivar Specimen's removed: Gallbladder Drains: None Estimated Blood Loss (mL): 25 Description of Procedure: After proper identification in the preoperative holding area the patient was brought to the operating room where she was positioned supine on the operating room table. Preoperatively SCDs were placed for DVT prophylaxis and antibiotics were administered. General anesthesia was then induced. Patient's abdomen was prepped and draped in usual sterile fashion. A formal timeout was conducted to confirm both patient and the procedure. After instilling local anesthetic at the site, procedure was begun with a supraumbilical incision which was extended deeply down to the level of the fascia. The fascia was elevated and incised, as well as the peritoneum. A finger sweep was performed to ensure there were no underlying adhesions and a 12 mm balloon trocar was inserted. Pneumoperitoneum was established at 15 mmHg. 3 additional trocars were placed in the epigastrium (12 mm) and in the right upper quadrant (2 x 5 mm). Inspection of the peritoneum revealed no inadvertent injury to the viscera below. The gallbladder was visualized with mild inflammation in the duodenum appeared to be pulled up near the gallbladder infundibulum. The gallbladder fundus was then grasped and elevated cephalad. Then, using careful dissection the peritoneum was opened and the structures of the hepatocystic triangle were delineated. Once the critical view of safety was obtained, A cholangiocatheter was fed into the proximal segment of the cystic duct and clamped into place using the Ambriz Skandia device. A cholangiogram was then obtained showing a standard length cystic duct flowing into a common bile duct with partially obstructed antegrade flow of contrast into the duodenum and a meniscal sign in the distal common bile duct. With this finding, I asked juan david fraga to administer 1 mg of glucagon. After a 5-minute wait, the common bile duct was flushed with sterile saline and the cholangiogram was reattempted. With this reattempt there was improved flow into the duodenum, but still a filling defect was present near the ampulla as seeing clear on the magnified views with the cholangiogram. There was also retrograde flow through the common hepatic duct into the right and left hepatic ducts. With this result, this portion of the procedure was terminated and the cholangiogram catheter/clamp were removed The cystic duct was triply clipped and sharply divided. The same process was used for the cystic artery. The gallbladder was then removed from the gallbladder fossa with the use of electrocautery. Selective electrocautery was used to obtain hemostasis in the gallbladder fossa. The gallbladder was placed in an Endo Catch bag and removed from the peritoneum. Morison's pouch was irrigated and the effluent was suctioned free of the peritoneum. There was some bleeding noted from the patient's subxiphoid port site and therefore I elected to place transfascial closure stitches using a Pablo-Gina suture passer and 0 Vicryl suture, reducing the pneumoperitoneum pressure, and applying upward traction on the site. This did result in cessation of the bleeding. Similar transfascial closing sutures were placed in the supraumbilical position. The gallbladder fossa was once again reinspected and found to be free of bleeding. The remaining blood clots from patient's fascial bleeding were suctioned free of the peritoneum and pneumoperitoneum was evacuated. The transfascial sutures were tied. Additional local anesthetic was infiltrated to the fascia with these closures. The skin of each port site was then closed in subcuticular fashion using 4-0 Monocryl. Steri-Strips and bandages were applied as dressings. Patient tolerated the procedure well without any apparent complications. On emergence from their anesthetic the patient was taken to PACU for ongoing recovery. Gastroenterology was also notified of the cholangiogram results and will tentatively plan to perform ERCP later today. Complications NA Admit VTE Documentation VTE Present on Admission: Yes VTE Mechan Device Prophylaxis: SCD's VTE Pharm Prophylaxis ordered?: No Procedures Digestive 40xxx-49xxx: 41105 Laparo cholecystectomy/graph
--- NOTE | 2021-10-22 10:21 | SUR.PHASEI ---
CONSENT RECEIVED FOR ERCP WITH DR. ASH AND , THIS NURSE WITNESS. PATIENT RESTING IN PACU AFTER LAP CHOLECYSTECTOMY.
--- NOTE | 2021-10-22 11:15 | RAD_ITS ---
EXAM: FL <TEMPLATE> CLINICAL INDICATION: ERCP TECHNIQUE: Fluoroscopic images of the ERCP biliary ductal system. Fluoroscopic guidance was provided by a physician. The fluoroscopy time was 75.3 seconds. This report was created using [employer] report generation technology. COMPARISON: None. FINDINGS: The common bile duct is cannulated. No definite constant filling defect is seen on the views available. The examination however was not performed for diagnostic purposes. RAD/ERCP Biliary Only IMPRESSION: ERCP as described above. Electronically Signed: Surinder Jenkins MD at 12:48 EDT ,
--- NOTE | 2021-10-22 11:34 | EX.PCM.CON.G ---
HPI Consult Data Date of Consult: 10/22/21 HPI Narrative HPI Narrative: YULY CARVER, is a 20 F who presented today for a cholecystectomy. She originally presented with right upper quadrant pain and associated nausea associated with sonographic finding of gallstones. She was referred for surgical consultation. Initial biochemical evaluation did show increased transaminitis with hyperbilirubinemia. Her ultrasound had showed multiple filling defects in her gallbladder. She underwent cholecystectomy today. Her intraoperative cholangiogram had showed filling defect in the distal common bile duct which was not responsive to glucagon administration. I was consulted for ERCP with stone extraction. At this time she still has a little bit of abdominal pain and some mild nausea. Most of the history is obtained from the patient's . [facility] Medical History Back pain Contraceptive management Easy bruising Headache Heartburn Ovarian cyst premature rupture of membranes (PPROM) with unknown onset of labor Vaping nicotine dependence, tobacco product Vitiligo Home Medications promethazine 25 mg PO Q6H PRN #20 tab 10/20/21 [Rx Last Taken 10/22/21] omeprazole 40 mg capsule,delayed release 40 mg PO DAILY 10/21/21 [History Last Taken 10/22/21] Allergy/AdvReac Type Severity Reaction Status Date / Time Penicillins Allergy Hives, Verified 10/22/21 07:04 swelling Family History (Updated 10/21/21 @ 12:17 by Christi Monday) Grandfather CHF (congestive heart failure) Grandmother CHF (congestive heart failure) Aunt CHF (congestive heart failure) Sister Asthma Father Arthritis Diabetes Hypertension Mother Thyroid disorder Surgical History delivery delivered History of surgery Social History household members: family housing: house current occupational status: employed current occupation: [employer] Smoking Status: Former smoker second hand exposure: Yes alcohol intake: never substance use type: does not use caffeine: Yes what type of physical activity do you participate in: none seatbelt use: always do you feel safe at home: Yes additional social history: Teresa Sal [facility] Gastrointestinal Gastrointestinal: Reports abdominal pain Physical Exam Const alert General Appearance: cooperative Orientation / Consciousness: oriented to person HEENT hearing grossly normal bilaterally Head and Scalp: normal to inspection Face and Sinus: face symmetric Nose: external nose normal Mouth: oral and palatal mucosa normal Eyes conjunctivae normal General Eye: normal appearance of both eyes Neck full ROM General: normal visual inspection Lymph Lymphatic: no lymphadenopathy noted Chest inspection of chest normal and palpation of chest normal Chest: symmetrical chest wall rise Resp normal respiratory effort Effort and Inspection: able to speak in complete sentences Cardio regular rate GI non-distended Percussion: normal to percussion Rectal Exam: deferred Neuro Speech: speech normal Gait (Neuro): normal gait Lab / Micro Data Labs: Laboratory Results - last 24 hr 10/22/21 07:00: Urine Test Negative 10/22/21 07:20: PT 14.2, INR 1.1, APTT 34.5 Micro: Microbiology 10/22/21 07:00 Interface Orders SARS-CoV-2 Antigen (Rapid) - Final Assessment & Plan Assessment/Plan (1) Choledocholithiasis: PLAN: The patient and the patient's houses were explained that she needed an ERCP with stone removal. She was explained alternatives, risk, benefits including not withstanding bleeding, infection, sepsis, perforation, post ERCP pancreatitis. Her elected to have the procedure done with verbal and written consent. Since the patient was sedated previously you for cholecystectomy he gave the consent for the ERCP. Charges/Coding Visit Charges Inpatient E&M: 68651 Init Hosp L2
[2021-10-22] MEDS: levoFLOXacin IV 500 MG/100 ML BAG 100 MG IV (11:54)
--- NOTE | 2021-10-22 12:11 | OP.ERCP_ITS ---
Patient Name: Mat Helms Procedure Date: 10/22/2021 11:28 AM Date of : 2000 Age: 20 Procedure: ERCP Indications: Bile duct stone(s), Common bile duct stone(s), Abdominal pain of suspected biliary origin Providers: Samir Calles DO Medicines: General Anesthesia Patient Profile: This is a 20 year old female. Refer to note in patient chart for documentation of history and physical. Patient has symptoms. The symptoms first began 02,. She is status post laparoscopic cholecystectomy recently. Complications: No immediate complications. Procedure: Pre-Anesthesia Assessment: - Prior to the procedure, a History and Physical was performed, and patient medications and allergies were reviewed. The patient is competent. The risks and benefits of the procedure and the sedation options and risks were discussed with the patient. All questions were answered and informed consent was obtained. Patient identification and proposed procedure were verified by the physician in the pre-procedure area. Mental Status Examination: alert and oriented. Airway Examination: normal oropharyngeal airway and neck mobility. Respiratory Examination: clear to auscultation. CV Examination: normal. Prophylactic Antibiotics: The patient does not require prophylactic antibiotics. Prior Anticoagulants: The patient has taken no previous anticoagulant or antiplatelet agents. ASA Grade Assessment: II - A patient with mild systemic disease. After reviewing the risks and benefits, the patient was deemed in satisfactory condition to undergo the procedure. The anesthesia plan was to use moderate sedation / analgesia (conscious sedation). Immediately prior to administration of medications, the patient was re-assessed for adequacy to receive sedatives. The heart rate, respiratory rate, oxygen saturations, blood pressure, adequacy of pulmonary ventilation, and response to care were monitored throughout the procedure. The physical status of the patient was re-assessed after the procedure. After obtaining informed consent, the scope was passed under direct vision. Throughout the procedure, the patient's blood pressure, pulse, and oxygen saturations were monitored continuously. The duodenoscope was introduced through the mouth, and advanced to the duodenum and used to inject contrast into the bile duct. The ERCP was accomplished without difficulty. The patient tolerated the procedure well. Moderate Sedation: Moderate (conscious) sedation was administered by the endoscopy nurse and supervised by the endoscopist. The patient's oxygen saturation, heart rate, blood pressure and response to care were monitored. Total physician intraservice time was 15 minutes. Scope In: 11:44:49 AM Scope Out: 12:06:23 PM Total Procedure Duration Time 0 hours 21 minutes 34 seconds Findings: The sales rep film was normal. The esophagus was successfully intubated under direct vision. The scope was advanced to a normal major papilla in the descending duodenum without detailed examination of the pharynx, larynx and associated structures, and upper GI tract. The upper GI tract was grossly normal. The bile duct was deeply cannulated with the short-nosed traction sphincterotome. Contrast was injected. I personally interpreted the bile duct images. There was brisk flow of contrast through the ducts. Opacification of the entire opacified area and main bile duct was successful. The maximum diameter of the ducts was 7 mm. The lower third of the main bile duct contained two stones, the largest of which was 6 mm in diameter. The main bile duct was diffusely dilated, with a stone causing an obstruction. The largest diameter was 5 mm. A straight Roadrunner wire was passed into the biliary tree. A 5 mm biliary sphincterotomy was made with a monofilament traction (standard) sphincterotome using ERBE electrocautery. Moderate bleeding from the sphincterotomy stopped within 5 minutes. The biliary tree was swept with a 12 mm balloon starting at the bifurcation. Sludge was swept from the duct. Two stones were removed. No stones remained. One 10 Fr by 5 cm stent with a single external flap and two internal flaps was placed 5 cm into the common bile duct. Clear fluid flowed through the stent. The stent was in good position. Impression: - The entire main bile duct was dilated, with a stone causing an obstruction. - Choledocholithiasis was found. Complete removal was accomplished by biliary sphincterotomy and balloon extraction. - A biliary sphincterotomy was performed. - The biliary tree was swept. - One stent was placed into the common bile duct. Procedure Code(s): --- Professional --- 97448, Endoscopic retrograde cholangiopancreatography (ERCP); with placement of endoscopic stent into biliary or pancreatic duct, including pre- and post-dilation and guide wire passage, when performed, including sphincterotomy, when performed, each stent [id number], Endoscopic retrograde cholangiopancreatography (ERCP); with removal of calculi/debris from biliary/pancreatic duct(s) G0500, Moderate sedation services provided by the same physician or other qualified health intensive care ambulance paramedic performing a gastrointestinal endoscopic service that sedation supports, requiring the presence of an independent trained observer to assist in the monitoring of the patient's level of consciousness and physiological status; initial 15 minutes of intra-service time; patient age 5 years or older (additional time may be reported with 55307, as appropriate) CPT copyright 2017 [employer]. All rights reserved. The codes documented in this report are preliminary and upon professor of environmental engineering review may be revised to meet current compliance requirements. Samir Calles DO 10/22/2021 12:10:38 PM This report has been signed electronically. Number of Addenda: 0 Note Initiated On: 10/22/2021 11:28 AM
--- NOTE | 2021-10-22 12:11 | OP.CCLET_ITS ---
10/22/2021 Josee Alfredo Re : ERCP procedure for Mat Helms Dear Aubrey This procedure was performed on Friday, October 22, 2021. My impressions and recommendations are as follows: Impressions : - The entire main bile duct was dilated, with a stone causing an obstruction. - Choledocholithiasis was found. Complete removal was accomplished by biliary sphincterotomy and balloon extraction. - A biliary sphincterotomy was performed. - The biliary tree was swept. - One stent was placed into the common bile duct. Recommendations : My findings are described in the full procedure note, which is enclosed. If I can be of further assistance, please feel free to contact me at . Sincerely, Samir Calles, 10/22/2021 12:10:38 PM This report has been signed electronically.
[2021-10-22] MEDS: oxyCODONE 5 MG Tablet PO ×2 (15:33→21:33)
[2021-10-22] MEDS: Ibuprofen 400 MG Tablet PO (17:42)
[2021-10-22] MEDS: 0.9% Normal Saline 1,000 ML 75 ML IV (21:32)
[2021-10-23] MEDS: Ibuprofen 400 MG Tablet PO ×2 (00:57→05:15)
[2021-10-23 02:04] VITALS: BP 113/69; PULSE 76; RESP 16; TEMP 36.9; O2SAT 97
[2021-10-23 05:57] VITALS: BP 124/83; PULSE 65; RESP 16; TEMP 36.8; O2SAT 98
[2021-10-23 06:29] LABS: Absolute Lymphocyte Count 2.36 X10^3/uL (0.83-4.51); Absolute Neutrophil Count 4.4 X10^3/uL (2.0-7.7); Basophil# 0.01 X10^3/uL; Basophil% 0.1 % (0-1); Eosinophil# 0.04 X10^3/uL; Eosinophils% 0.5 % (0-5); Hematocrit 35.8 % (37-47); Hemoglobin 11.5 g/dL (12.0-15.0); Lymphocyte # 2.36 X10^3/ul (0.83-4.51); Lymphocyte % 32.2 % (19-41); Mean Corp Hgb Conc 32.1 g/dL (32-36); Mean Corpuscular Hgb 27.1 pg (27.0-32.0); Mean Corpuscular Volume 84.4 fL (81-99); Mean Platelet Vol. 9.9 fl (6.2-12.0); Monocyte# 0.52 X10^3/uL; Monocyte% 7.1 % (0-10); NRBC Flagged by Analyzer 0 % (0-5); Neutrophil # 4.37 X10^3/uL (2.7-7.7); Neutrophil % 59.7 % (47-70); Platelet Count 280 K/mm3 (150-450); RBC Distribution Width CV 13.2 % (11.6-14.6); RBC Distribution Width SD 40.8 fl (35.1-43.9); Red Blood Count 4.24 M/mm3 (4.2-5.4); White Blood Count 7.3 K/mm3 (4.4-11.0)
[2021-10-23 06:59] LABS: ALB/GLOB Ratio 1.2 RATIO (0.9-2.4); AST(SGOT) 82 U/L (15-37); Alanine Aminotransfer ALT/SGPT 402 U/L (13-56); Albumin, Serum 3.3 g/dL (3.2-5.0); Alkaline Phosphatase 136 U/L (45-117); Anion Gap 6 (5-15); BUN 10 mg/dL (7-18); BUN/Creat Ratio 12.5 RATIO (10-20); Calcium,Total 8.4 mg/dL (8.5-10.1); Chloride 109 mmol/L (98-107); EST Glomerular Filtration Rate 95 mL/min (>60); Est Glom Filt Rate - Afr Amer 115 mL/min (>60); Estimated Creatinine Clearance 79.23 ml/min; Globulin 2.7 g/dL (2.2-4.2); Glucose 100 mg/dL (74-106); Potassium 3.3 mmol/L (3.5-5.1); Sodium Level 140 mmol/L (136-145)
--- NOTE | 2021-10-23 08:53 | PN_ITS ---
Subjective Subjective Postop day 1 status post cholecystectomy is status post ERCP with stone removal and stent placement. She rates her abdominal pain at a 3 out of 10. She has been afebrile overnight. She has had a bowel movement. She has been tolerating a diet. Objective Data Objective Data Vital Signs: Vital Signs Temp Pulse Resp BP Pulse Ox 98.2 F 65 16 124/83 H 98 10/23/21 05:57 10/23/21 05:57 10/23/21 05:57 10/23/21 05:57 10/23/21 05:57 Oxygen Flow Rate (L/min) 4 Oxygen Delivery Method Room Air Weight: 151 lb 7.321 oz Body Mass Index (BMI) 29.5 Intake & Output: Intake and Output for Last 24 Hours 10/21/21 10/22/21 10/23/21 23:59 23:59 23:59 Intake Total 3400 / 3400 Balance 3400 / 3400 Lab / Micro Data Result Diagrams: 10/23/21 06:06 10/23/21 06:06 Labs: Laboratory Results - last 24 hr 10/23/21 06:06: WBC 7.3, RBC 4.24, Hgb 11.5 L, Hct 35.8 L, MCV 84.4, MCH 27.1, MCHC 32.1, RDW Std Deviation 40.8, RDW Coeff of Carolyn 13.2, Plt Count 280, MPV 9.9, Immature Gran % (Auto) 0.400, Neut % (Auto) 59.7, Lymph % (Auto) 32.2, Mineral % (Auto) 7.1, Eos % (Auto) 0.5, Baso % (Auto) 0.1, Absolute Neuts (auto) 4.4, Absolute Lymphs (auto) 2.36, Nucleated RBC % 0 10/23/21 06:06: Sodium 140, Potassium 3.3 L, Chloride 109 H, Carbon Dioxide 25.0, Anion Gap 6, BUN 10, Creatinine 0.80, Estim Creat Clear Calc 79.23, Est GFR (MDRD) Af Amer 115, Est GFR (MDRD) Non-Af 95, BUN/Creatinine Ratio 12.5, Glucose 100, Calcium 8.4 L, Total Bilirubin 1.20 H, AST 82 H, ALT 402 H, Alkaline Phosphatase 136 H, Total Protein 6.0 L, Albumin 3.3, Globulin 2.7, Albumin/Globulin Ratio 1.2 Micro: Microbiology 10/22/21 07:00 Interface Orders SARS-CoV-2 Antigen (Rapid) - Final Radiography Diagnostic Testing: Radiology Impression Cholangiogram 10/22/21 08:25 IMPRESSION: Findings suggestive of a small calculus in the distal portion of the common bile duct. Electronically Signed: Aleksey Glover MD at 12:16 EDT , Cholangiogram,Operative 10/22/21 08:25 IMPRESSION: Persistent filling defect in the distal portion of the common bile duct in keeping with a distal common bile duct calculus. Electronically Signed: Aleksey Glover MD at 12:18 EDT , Physical Exam Const alert General Appearance: cooperative Orientation / Consciousness: oriented to person HEENT hearing grossly normal bilaterally Head and Scalp: normal to inspection Face and Sinus: face symmetric Nose: external nose normal Mouth: oral and palatal mucosa normal Eyes conjunctivae normal General Eye: normal appearance of both eyes Neck full ROM General: normal visual inspection Lymph Lymphatic: no lymphadenopathy noted Chest inspection of chest normal and palpation of chest normal Chest: symmetrical chest wall rise Resp normal respiratory effort Effort and Inspection: able to speak in complete sentences Cardio regular rate GI non-distended Percussion: normal to percussion Rectal Exam: deferred Neuro Speech: speech normal Gait (Neuro): normal gait Assessment & Plan Assessment/Plan (1) Choledocholithiasis: PLAN: Patient's LFTs are trending down status post stone removal and stent placement. She is tolerating a diet and doing well. She can be discharged from GI standpoint and follow-up in the clinic. (2) Cholelithiasis:
--- NOTE | 2021-10-23 08:54 | EX.PCM.DISCH ---
Discharge Instructions Diet Discharge Diet: Light diet - advance as tolerated Activity Discharge Activity: May Not Drive (while taking narcotic pain medications.) May shower in (days): 1 Lifting Restrictions: no lifting >20 lbs x 2 wks, no strenuous exercise for 4 wks Dressing / Incision Call your doctor if your incision/area has: Continuous Slow Oozing, Sudden Increased Bleeding, Increased Pain/ Swelling, Increased Redness, Foul Smelling Discharge and Swelling at the incision site Call your doctor if you observe: Fever of 101 or Higher Remove Dressing in: 2 days Cleanse incision/area with: Soap & Water Additional Dressing/Incision Instructions:: Steri-Strips will fall off in 7 to 10 days, if they do not fall off okay to remove after 10 days. Follow Up Care Please Follow Up With: Niall Regalado MD When: Call the office for a follow-up appointment 2 weeks; after 5 PM and on the weekends call [phone] with any concerns. Test Results: Test results from this visit will be discussed in further detail at your follow-up appointment, if applicable. Discharge Plan Admission Admit Date/Time: 10/22/21 10:02 Attending Provider: Niall Regalado Primary Care Provider: Kaylyn Burgos NP Consulting Providers: Samir Calles Instructions Additional Instructions / Restrictions: Patient must use alternate form of control for one month since it can cause BCP failure. okay to take ibuprofen 400-600 mg PO q6hr PRN along with the Percocet. Avoid Tylenol since there is already Tylenol in the Percocet. Take all pain meds with food. Percocet can cause constipation recommend taking daily stool softener (i.e. Colace/docusate) while taking the pain meds. Recommend starting some MiraLAX in 1 to 2 days if no bowel movement. If still no bowel movement the following day recommend taking magnesium citrate half the bottle and waiting 4-6 hours if still no results take the other half the bottle. Discharge Orders/Prescriptions Prescriptions: New oxycodone-acetaminophen 5-325 mg tablet 1 tab PO Q6H PRN (Reason: pain) 3 Days Qty: 14 RF: 0 Continued omeprazole 40 mg capsule,delayed release(DR/EC) 40 mg PO DAILY RF: 0 promethazine 25 mg tablet 25 mg PO Q6H PRN (Reason: nausea and vomiting) Qty: 20 RF: 0 Referrals / Follow Up: Samir Calles DO [STAFF PHYSICIAN] - (In 2 weeks call for an appointment) Kaylyn Burgos NP, PREFLIGHT INSPECTOR-C [Primary Care Provider] - Disposition Disposition (needs filled in before D/C Order can be placed): Home, Self Care
[2021-10-23 09:31] VITALS: BP 125/73; PULSE 80; RESP 16; TEMP 36.5; O2SAT 95
[2021-10-23] MEDS: oxyCODONE 5 MG Tablet PO (10:43)
== END 2021-10-23 10:45 | disposition home or self-care (01) ==
LOC: SDC 10:49 → MS3 10:49
PROVIDERS: Anesthesiology; Internal Medicine Gastroenterology; Admitting Provider Surgery; PCP Nurse Practitioner Family; Visit Provider Surgery
PROC: (CPT 47610; principal; 2021-10-22 07:40)
DX: K80.12 Calculus of gallbladder with acute and chronic cholecystitis without obstruction (principal); F17.290 Nicotine dependence, other tobacco product, uncomplicated; R12 Heartburn; Z79.899 Other long term (current) drug therapy
CPT/HCPCS: 47563; 43274; 43264; 00790; 36415; 74300; 74301; 74328; 76000; 80053; 81025; 85025; 85610; 85730; 87426; 88304; 93005; 96360; 96361; 99218; 99406; J7030; J7120; G0378; J1610; J2405

== ENCOUNTER → 2021-12-30 | Outpatient (CLI) | payer MEDICAID, SELFPAY ==
--- NOTE | 2021-12-30 10:04 | NM_ITS ---
Nuclear medicine HIDA scan Indication: Status post cholecystectomy, abdominal pain COMPARISON STUDIES : NM - None. CR - 10/22/2021 CT - Not available for review at this time. MR - Not available for review at this time. Technique: 4.6 mCi of technetium 99m labeled mebrofenin was injected intravenously followed by standard imaging. Findings: There is homogenous activity throughout the liver. Normal excretion of isotope into the proximal small bowel. No isotope seen outside of the biliary system/bowel. NM/Hepatobilliary Imaging IMPRESSION: 1. Cholecystectomy. 2. No evidence of biliary leak. Electronically Signed: Teddy Charles MD ([place]) at 8:16 EDT ,
== END | disposition home or self-care (01) ==
LOC: NM 10:03
PROVIDERS: PCP Nurse Practitioner Family; Referring Provider Nurse Practitioner Adult Health; Visit Provider Nurse Practitioner Adult Health
DX: R10.9 Unspecified abdominal pain (principal)
CPT/HCPCS: 78226; A9537

== ENCOUNTER → 2022-02-03 | Outpatient (CLI) | payer MEDICAID, SELFPAY ==
[2022-02-03 09:48] LABS: hCG Titer Quant., Serum < 1 mIU/mL (1-3)
== END | disposition home or self-care (01) ==
LOC: PAVLAB 09:10
PROVIDERS: PCP Nurse Practitioner Family; Referring Provider Nurse Practitioner Women's Health; Visit Provider Nurse Practitioner Women's Health
DX: N91.2 Amenorrhea, unspecified (principal)
CPT/HCPCS: 36415; 84702

== ENCOUNTER 2022-03-24 10:53 | Day surgery (SDC) | payer MEDICAID, SELFPAY ==
[2022-03-24] MEDS: Lactated Ringers 1,000 ML 15 ML IV (11:00)
--- NOTE | 2022-03-24 11:13 | EKG12_ITS ---
Test Reason : PRE OP Blood Pressure : / mmHG Vent. Rate : 069 BPM Atrial Rate : 069 BPM P-R Int : 144 ms QRS Dur : 088 ms QT Int : 396 ms P-R-T Axes : 023 066 049 degrees QTc Int : 424 ms Normal sinus rhythm with sinus arrhythmia Normal ECG When compared with ECG of 22-OCT-2021 06:49, No significant change was found Confirmed by RISA MONROE, TRACY ([id number]), greeting card editor ALDAIR MILLER ([id number]) on 03/29/2022 8:12:05 AM Referred By: Samir Calles Confirmed By:TRACY LORD MD
[2022-03-24 11:23] LABS: Internal QC Validated? YES +Cl - CLEAR BKGD; Pregnancy, Urine Negative Negative
[2022-03-24 11:24] VITALS: BP 109/65; PULSE 66; RESP 18; TEMP 37.2; O2SAT 100; BMI 30.8
--- NOTE | 2022-03-24 12:00 | HP.PCM_ITS ---
History and Physical Date of Admission: 03/24/22 YULY CARVER, is a 21 F who presents to the office today for follow-up status post hospitalization in October 09 with 022 for choledocholithiasis.? She had cholecystectomy and intraoperative cholangiogram.? Dr. Calles did ERCP with stone removal and stent placement.? She had been doing well until the past 2 to 3 weeks during which time she has had 3 episodes of abd pain, pain is central abdomen/epigastric.? 1 episode woke her up, the other 2 occurred in AM after waking up, not postprandial, lasts 10 minutes.? The pain is exactly like her gallbladder attacks except that the pain remains in the abdomen and does not radiate up into the chest.? She denies nausea or vomiting.? No dysphagia.? Bowels are normal, no diarrhea or constipation.? No melena or hematochezia.? Her gallbladder issues began .? Her son is almost 8 months old now. ROS Const Constitutional: No fatigue ENT ENT: No difficulty swallowing Gastro GI: Positive for heartburn; No abdominal pain, belching, bloating, change in bowel habits, change in stool character, coffee ground emesis, constipation, cramping, diarrhea, difficulty swallowing, feeling full early, excessive flatus, incontinent of stools, Vomiting blood/hematemesis, Blood in stool, loose stools, Black,tarry stools, nausea/dyspepsia, pain with swallowing, vomiting or other Musc Musculoskeletal: Positive for joint pain and back pain Skin Skin: No yellowing of the eye or itchy eyes Psych Psychiatric: No anxiety and No depression Endo Endocrine: No fatigue Aller/Imm Allergy/Immunologic: No itchy eyes Eddie/Lymp Hematologic/Lymphatic: No easy bleeding or easy bruising Exam Const General: cooperative, healthy appearing, no acute distress, well developed and well groomed GI Inspection: normal to inspection Palpation: soft and nontender Quality Reporting Tobacco Screening ([facility]) Smoking Status: Former smoker Assessment and Plan Assessment and Plan (1) Abdominal pain: ?Status:?Acute (2) S/P laparoscopic cholecystectomy: ?Status:?Acute (3) History of biliary stent insertion: ?Status:?Acute ? ? ? Orders:?Orders: ? Hepatobilliary Img w/Pharm Int Today R10.9, Z90.49 ?Plan - Stephanie John HEAVY EQUIPMENT RENTAL ASSOCIATE, HEAVY EQUIPMENT RENTAL ASSOCIATE-C: 21-year-old female having acute episodes of abdominal pain which feel like gallbladder pain, status post cholecystectomy and ERCP with placement of biliary stent in October 2021.? Case discussed with Dr. Calles.? We will get HIDA scan to evaluate for biliary leak.? Follow-up depending on that result.? We will go ahead and get her scheduled for stent removal. I have re-examined the patient. There are no clinical changes since date of exam.
--- NOTE | 2022-03-24 13:30 | RAD_ITS ---
STUDY: ERCP. REASON FOR EXAM: Female, 21 years old. ERCP FLUOROSCOPY TIME (if supplied): ( 40.2 seconds ) minutes/seconds. 6 images were submitted. TECHNIQUE: An ERCP was performed by the piano technician. The common bile duct was cannulated. A balloon catheter was passed through the duct. COMPARISON: None. FINDINGS: No significant abnormality is seen. RAD/ERCP Biliary Only IMPRESSION: Imaging provided for ERCP. Electronically Signed: Aleksey Glover MD at 14:56 EDT ,
--- NOTE | 2022-03-24 13:52 | OP.ERCP_ITS ---
Patient Name: Mat Helms Procedure Date: 03/24/2022 1:03 PM Date of : 2000 Age: 21 Procedure: ERCP Indications: Stent removal Providers: Samir Calles DO Referring MD: Samir Calles DO Medicines: Monitored Anesthesia Care Patient Profile: This is a 21 year old female. Complications: No immediate complications. Procedure: Pre-Anesthesia Assessment: - Prior to the procedure, a History and Physical was performed, and patient medications and allergies were reviewed. The patient is competent. The risks and benefits of the procedure and the sedation options and risks were discussed with the patient. All questions were answered and informed consent was obtained. Patient identification and proposed procedure were verified by the physician in the pre-procedure area. Mental Status Examination: alert and oriented. Airway Examination: normal oropharyngeal airway and neck mobility. Respiratory Examination: clear to auscultation. CV Examination: normal. Prophylactic Antibiotics: The patient does not require prophylactic antibiotics. Prior Anticoagulants: The patient has taken no previous anticoagulant or antiplatelet agents. ASA Grade Assessment: II - A patient with mild systemic disease. After reviewing the risks and benefits, the patient was deemed in satisfactory condition to undergo the procedure. The anesthesia plan was to use moderate sedation / analgesia (conscious sedation). Immediately prior to administration of medications, the patient was re-assessed for adequacy to receive sedatives. The heart rate, respiratory rate, oxygen saturations, blood pressure, adequacy of pulmonary ventilation, and response to care were monitored throughout the procedure. The physical status of the patient was re-assessed after the procedure. After obtaining informed consent, the scope was passed under direct vision. Throughout the procedure, the patient's blood pressure, pulse, and oxygen saturations were monitored continuously. The Duodenoscope was introduced through the mouth, and advanced to the duodenum and used to cannulate the bile duct. The ERCP was accomplished without difficulty. The ERCP was accomplished without difficulty. The patient tolerated the procedure well. Scope In: 1:34:21 PM Scope Out: 1:44:25 PM Total Procedure Duration Time 0 hours 10 minutes 4 seconds Findings: The supervisor tubing film was normal. The esophagus was successfully intubated under direct vision. The scope was advanced to a normal major papilla in the descending duodenum without detailed examination of the pharynx, larynx and associated structures, and upper GI tract. The upper GI tract was grossly normal. The bile duct was deeply cannulated with the short-nosed traction sphincterotome. Contrast was injected. I personally interpreted the bile duct images. There was brisk flow of contrast through the ducts. Image quality was excellent. Contrast extended to the main bile duct. Opacification of the entire opacified area and entire biliary tree was successful. The maximum diameter of the ducts was 9 mm. The entire biliary tree except for the cystic duct and gallbladder contained one stone, which was 6 mm in diameter. The lower third of the main bile duct was diffusely dilated, with a stone causing an obstruction. The largest diameter was 5 mm. A straight Roadrunner wire was passed into the biliary tree. A 5 mm biliary sphincterotomy was made with a monofilament traction (standard) sphincterotome using ERBE electrocautery. There was no post-sphincterotomy bleeding. The biliary tree was swept with a 12 mm balloon starting at the bifurcation. Sludge was swept from the duct. All stones were removed. Impression: - The lower third of the main bile duct was dilated, with a stone causing an obstruction. - Choledocholithiasis was found. Complete removal was accomplished by biliary sphincterotomy and balloon extraction. - A biliary sphincterotomy was performed. - The biliary tree was swept. Procedure Code(s): --- Professional --- 52637, Endoscopic retrograde cholangiopancreatography (ERCP); with removal of calculi/debris from biliary/pancreatic duct(s) 87244, Endoscopic retrograde cholangiopancreatography (ERCP); with sphincterotomy/papillotomy 49295, 26, Endoscopic catheterization of the biliary ductal system, radiological supervision and interpretation CPT copyright 2017 [employer]. All rights reserved. The codes documented in this report are preliminary and upon wagon drill operator review may be revised to meet current compliance requirements. Samir Calles DO 03/24/2022 1:51:48 PM This report has been signed electronically. Number of Addenda: 0 Note Initiated On: 03/24/2022 1:03 PM
--- NOTE | 2022-03-24 13:52 | OP.CCLET_ITS ---
03/24/2022 Josee Alfredo Re : ERCP procedure for Mat Helms Dear Aubrey This procedure was performed on March. My impressions and recommendations are as follows: Impressions : - The lower third of the main bile duct was dilated, with a stone causing an obstruction. - Choledocholithiasis was found. Complete removal was accomplished by biliary sphincterotomy and balloon extraction. - A biliary sphincterotomy was performed. - The biliary tree was swept. Recommendations : My findings are described in the full procedure note, which is enclosed. If I can be of further assistance, please feel free to contact me at . Sincerely, Samir Calles, 03/24/2022 1:51:48 PM This report has been signed electronically.
[2022-03-24 14:06] VITALS: BP 109/65; BP 118/64; PULSE 86; RESP 16; TEMP 36.6; O2SAT 100
[2022-03-24 14:15] VITALS: BP 109/65; BP 113/89; PULSE 74; RESP 18; O2SAT 98
[2022-03-24 14:30] VITALS: BP 102/53; BP 109/65; PULSE 56; RESP 18; O2SAT 100
[2022-03-24 14:42] VITALS: BP 109/65; BP 98/49; PULSE 51; RESP 15; TEMP 36.6; O2SAT 100
[2022-03-24 14:53] VITALS: BP 109/65
== END 2022-03-24 15:22 | disposition home or self-care (01) ==
LOC: EN 10:54 → AC 10:55
PROVIDERS: Anesthesiology; PCP Nurse Practitioner Family; Referring Provider Internal Medicine Gastroenterology; Visit Provider Internal Medicine Gastroenterology
PROC: (CPT 43260; principal; 2022-03-24 11:40)
DX: K80.51 Calculus of bile duct without cholangitis or cholecystitis with obstruction (principal); R12 Heartburn; Z90.49 Acquired absence of other specified parts of digestive tract; Z87.891 Personal history of nicotine dependence
CPT/HCPCS: 43264; 43262; 74328; 76000; 81025; 93005; J7120; C1769; J2405

== ENCOUNTER → 2022-07-05 | Outpatient (CLI) | payer MEDICAID, SELFPAY ==
[2022-07-05 11:45] LABS: hCG Titer Quant., Serum < 1 mIU/mL (1-3)
== END | disposition home or self-care (01) ==
LOC: PAVLAB 11:06
PROVIDERS: PCP Nurse Practitioner Family; Referring Provider Nurse Practitioner Women's Health; Visit Provider Nurse Practitioner Women's Health
DX: N91.2 Amenorrhea, unspecified (principal)
CPT/HCPCS: 36415; 84702

== ENCOUNTER → 2022-10-21 | Outpatient (CLI) | payer MEDICAID, SELFPAY ==
[2022-10-21 17:21] LABS: hCG Titer Quant., Serum 38 mIU/mL (1-3)
== END | disposition home or self-care (01) ==
PROVIDERS: PCP Nurse Practitioner Family; Referring Provider Obstetrics & Gynecology; Visit Provider Obstetrics & Gynecology
DX: N91.2 Amenorrhea, unspecified (principal)
CPT/HCPCS: 36415; 84702

== ENCOUNTER → 2022-10-25 | Outpatient (CLI) | payer MEDICAID, SELFPAY ==
[2022-10-25 09:21] LABS: hCG Titer Quant., Serum 313 mIU/mL (1-3)
== END | disposition home or self-care (01) ==
LOC: PAVLAB 08:41
PROVIDERS: PCP Nurse Practitioner Family; Referring Provider Obstetrics & Gynecology; Visit Provider Obstetrics & Gynecology
DX: N91.2 Amenorrhea, unspecified (principal)
CPT/HCPCS: 36415; 84702

== ENCOUNTER 2024-06-27 12:36 | Emergency (ER) | payer MEDICAID, SELFPAY ==
[2024-06-27 12:36] VITALS: BP 124/82; PULSE 81; RESP 16; TEMP 36.9; O2SAT 99; BMI 32.3
--- NOTE | 2024-06-27 13:06 | CT_ITS ---
STUDY: CT BRAIN WITHOUT CONTRAST REASON FOR EXAM: Female, 23 years old. headache RADIATION DOSAGE (If Supplied By Facility): CTDIvol = ( 44.99 ) mGy, DLP = ( 728.62 ) mGycm TECHNIQUE: Transaxial CT imaging of the brain was performed without administration of intravenous contrast material. Individualized dose optimization techniques were used for this CT. COMPARISON: Comparison is made with prior study dated June 08, 2016. FINDINGS: Normal soft tissue structures. Normal calvarium. Normal size ventricles and extra-axial spaces for the patient''s age. Normal white matter tracts of the cerebral hemispheres. Normal basal ganglia and thalami. Normal brainstem. Normal cerebellum. There is no intracranial hemorrhage. There are no findings of an acute ischemic infarction. Partial opacification of the maxillary sinuses worse on the right side. Opacification of the sphenoid sinus as well as the ethmoid sinuses. CT/Brain/Head without Contrast IMPRESSION: Normal unenhanced CT scan of the brain. Pansinusitis. Electronically Signed: Aleksey Glover MD at 13:40 EST ,
--- NOTE | 2024-06-27 13:15 | EDS_ITS ---
HPI <MARANDA Tapia - Last Filed: 06/27/24 13:57> History of Present Illness Chief Complaint: Headache Narrative Narrative: Patient is a 23-year-old female with no significant ankle history presents to the emergency department for complaints of 2 weeks of headache. Patient she also complains of bilateral ear pain. Patient went to the urgent care today, however secondary to the headache for 2 weeks, they referred her to the emergency department. Patient denies any upper or lower extremity weakness. Patient [place] any nausea or vomiting peer denies any family history of any migraine-like headaches. PFSH <MARANDA Tapia - Last Filed: 06/27/24 13:57> PFSH Medical History Back pain Contraceptive management Easy bruising Headache Heartburn Ovarian cyst premature rupture of membranes (PPROM) with unknown onset of labor Vaping nicotine dependence, tobacco product Vitiligo Home Medications ?Medication ?Instructions ?Recorded ?Last Taken ?Type azithromycin 250 mg tablet See Rx Instructions PO .COMPLEX #6 06/27/24 Unknown Rx tabs Allergy/AdvReac Type Severity Reaction Status Date / Time Penicillins Allergy Hives, Verified 06/27/24 12:38 swelling Family History Grandfather CHF (congestive heart failure) Grandmother CHF (congestive heart failure) Aunt CHF (congestive heart failure) Sister Asthma Father Arthritis Diabetes Hypertension Mother Thyroid disorder Surgical History delivery delivered History of ERCP History of surgery S/P laparoscopic cholecystectomy Social History household members: family housing: house current occupational status: employed current occupation: [employer] Smoking Status: Former smoker second hand exposure: Yes alcohol intake: never substance use type: does not use caffeine: Yes what type of physical activity do you participate in: none seatbelt use: always do you feel safe at home: Yes additional social history: Teresa Guerrero [place] ROS <MARANDA Tapia - Last Filed: 06/27/24 13:57> ROS ED ROS Narrative Constitutional: Negative for fever, chills, weight loss, weakness Eyes: Negative for vision loss, vision change, double vision ENT: Negative for any sore throat, congestion. Positive for ear pain Cardiovascular: Negative for any chest pain, tightness, palpitations Respiratory: Negative for any cough, sputum production, hemoptysis, dyspnea, dyspnea on exertion, orthopnea Gastrointestinal: Negative for any abdominal pain, nausea, vomiting, diarrhea, constipation, blood in stool, blood in vomit : Negative for any urinary frequency, dysuria, retention, blood in urine Muscle skeletal: Negative for any neck pain, back pain Neurological: Negative for any syncope, dizziness. Positive for headache Skin: Negative for any rashes, itching, abrasions, lacerations Psychiatric: Negative for any depression, anxiety, stress, suicidal ideation, homicidal ideation Hematologic: Negative for any excessive bruising, easy bleeding EXAM <MARANDA Tapia - Last Filed: 06/27/24 13:57> Physical Exam Narrative Exam Narrative: Vital signs reviewed. HEET: Head normocephalic atraumatic, TMs clear bilaterally. Posterior pharynx is clear, moist mucous membranes. Nares clear bilaterally. Pupils are equal round reactive to light. Negative hemotympanum or septal hematoma. Neck: Supple with no lymphadenopathy or tenderness. No signs of meningismus. Cardiac: Regular rate and rhythm no murmurs gallops or rubs, equal peripheral pulses bilaterally. Respiratory: Lungs clear to auscultation bilaterally. No chest tenderness. Abdomen: Soft, nontender, nondistended. No abdominal bruit or pulsatile masses. No hepatosplenomegaly Extremities: No peripheral edema, no signs of gross trauma or deformity. Active full range of motion of all extremities. Neuro: Cranial nerves II through XII intact, no focal neurological deficits. Skin: Clean dry and intact with no rash, purpura, petechiae, vesicles or pustules. Backs/flank: No CVA tenderness, no midline spinal tenderness, no deformity. Psych: Normal mood and affect. No SI, HI or acute psychosis. Const Vital Signs: 06/27/24 12:36 Temperature 98.4 F Temperature Source Oral Pulse Rate 81 Respiratory Rate 16 Blood Pressure 124/82 H Blood Pressure Mean 96 Pulse Ox 99 Oxygen Delivery Method Room Air Positive well nourished and well developed General Appearance ED: well developed <Dr. Jean Clark MD - Last Filed: 06/27/24 13:23> Physical Exam Const Vital Signs: 06/27/24 12:36 Temperature 98.4 F Temperature Source Oral Pulse Rate 81 Respiratory Rate 16 Blood Pressure 124/82 H Blood Pressure Mean 96 Pulse Ox 99 Oxygen Delivery Method Room Air [facility] <Blaze PierreMARANDA bowie - Last Filed: 06/27/24 13:57> [facility] Radiography Diagnostic Testing: Clinical Impression(s) from Imaging Studies Brain CT 06/27/24 13:06 IMPRESSION: Normal unenhanced CT scan of the brain. Pansinusitis. Electronically Signed: Aleksey Glover MD at 13:40 EST , Treatment and Re-Evaluation :: Differential diagnosis includes however is not limited to: Sinusitis, intracranial bleeding, viral-like syndrome, headache secondary to cough Patient appears generally well, vital signs are stable, patient is nontoxic- appearing. Presenting to the [facility] part with complaints of headache for the last 2 weeks. Physical examination was gross unremarkable. Neurological examination was unremarkable. Patient received a CT scan of the brain. All radiologic examinations were read, reviewed by the emergency department attending. From these reads, a plan of care will be put in place. Patient CT scan shows pansinusitis. Secondary this finding, this is likely related to her symptoms of headache. Patient replaced on a Z-Baron. This to be sent to the [facility]. She is instructed to take the antibiotics until finished. Instructed return for any worsening symptoms. Stable for discharge <Dr. Jean Clark MD - Last Filed: 06/27/24 13:23> [facility] Narrative Medical decision making narrative: I have personally performed a face to face assessment of the patient and have reviewed the BRYAN Note. I performed a substantive portion of the visit including all aspects of the following. My nicole findings include: History is 23-year-old female no seen past medical history. States she has had a headache for the last 2 weeks has been constant. Denies any fall injury or trauma. On no blood thinner. Denies sinus congestion but the headache is worse when she leans over. Denies any vomiting. No trouble walking. No weakness to her arms and legs. No family history of intracranial bleeds or aneurysms. Exam is [well-appearing 23-year-old female. Vital signs stable afebrile. H EENT exam pupils round reactive light. Extra motions are intact. No facial droop. Normal speech. No trauma. Neck nontender no meningismus. Lungs clear to auscultation bilaterally. Heart regular rate and rhythm rate about 80 no murmur. Chest wall ribs nontender. Abdomen soft nontender. Moving all 4 extremities. 5 out of 5 collator strength. Dorsi plantarflexion intact. Fingertip to nose within normal limits. NIH score is 0. Answering questions following commands.] Medical Decision Making [23-year-old female 2-week history of constant headache. Normal exam. CT being obtained.] Other additions or changes: [None] Radiography Diagnostic Testing: Clinical Impression(s) from Imaging Studies Brain CT 06/27/24 13:06 IMPRESSION: Normal unenhanced CT scan of the brain. Pansinusitis. Electronically Signed: Aleksey Glover MD at 13:40 EST Reading Location ID and State: [facility] / [place] , Service support , Discharge Plan Triage Chief Complaint: Headache ED Midlevel Provider: Blaze Hammond ED Provider: Jean Clark Dx/Rx/DC Orders Clinical Impression: Headache, Sinusitis Instructions: Causes of Sinusitis, ED Sinusitis (Antibiotic Treatment) Prescriptions: New azithromycin 250 mg tablet See Rx Instructions .ROUTE .COMPLEX Qty: 6 0RF Rx Instructions: For 250 mg dose pack: take 500 mg today (day 1), then 250 mg for 4 days (days 2-5) Primary Care Provider: Care Physician,No Primary Referrals: NOT,DEFINED [Non-Staff] - Print Language: Beninese Disposition Disposition: Home, Self Care
== END 2024-06-27 14:09 | disposition home or self-care (01) ==
PROVIDERS: Emergency Provider Emergency Medicine; Visit Provider Emergency Medicine
DX: J32.4 Chronic pansinusitis (principal); Z88.0 Allergy status to penicillin; Z87.891 Personal history of nicotine dependence
CPT/HCPCS: 70450; 99282